=== PATIENT | female | born 1940 | race Caucasian/White ===

== ENCOUNTER 2016-12-05 14:08 | Inpatient (IN) ==
--- NOTE | 2016-12-04 21:56 | Discharge Summary ---
<SrinathElisha hilarioEsme L - Last Filed: 12/04/16 21:54> Date of Encounter: 12/04/16 - Discharge Diagnosis (1) Arthritis of right hip Priority: Primary Status: Acute (2) CAD (coronary artery disease) Priority: Secondary Status: Chronic Qualifiers: Coronary Disease-Associated Artery/Lesion type: unspecified vessel or lesion type [place] vs. transplanted heart: unspecified whether [place] or transplanted heart Associated angina: angina presence unspecified Qualified Code(s): I25.10 - Atherosclerotic heart disease of [place] coronary artery without angina pectoris (3) History of CVA (cerebrovascular accident) Priority: Secondary Status: Chronic (4) History of non-ST elevation myocardial infarction (NSTEMI) Priority: Secondary Status: Chronic (5) Hyperlipidemia Priority: Secondary Status: Chronic Qualifiers: Hyperlipidemia type: unspecified Qualified Code(s): E78.5 - Hyperlipidemia , unspecified (6) Hypertension Priority: Secondary Status: Chronic Qualifiers: Hypertension type: essential hypertension Qualified Code(s): I10 - Essential (primary) hypertension - Discharge Medications Home Medications: Nitroglycerin [Nitrolingual] 400 mcg SL ONCE PRN #0 06/19/15 [History] Allopurinol [Zyloprim] 100 mg PO DAILY 08/12/15 [History] Atorvastatin Calcium [Lipitor] 40 mg PO DAILY 08/12/15 [History] Calcium Carbonate/Vitamin D3 [Calcium 600 + D Tablet] 2 each PO BID 08/12/15 [ History] Magnesium Oxide [Magnesium] 400 mg PO BID 08/12/15 [History] Raloxifene [Evista] 60 mg PO DAILY 08/12/15 [History] Vitamin E (Dl,Tocopheryl Acet) [Vitamin E] 400 unit PO DAILY 08/12/15 [History] Apixaban [Eliquis] 2.5 mg PO BID 04/12/16 [History] Metformin [Glucophage] 500 mg PO BIDWM 04/12/16 [History] Pantoprazole Sodium [Protonix] 40 mg PO DAILY 04/12/16 [History] Levothyroxine [Synthroid] 75 mcg PO DAILY #0 04/14/16 [Rx] Aspirin Enteric Coated [Aspirin EC] 325 mg PO DAILY #21 tablet 12/04/16 [Rx] OxyCODONE Immed Rel [Roxicodone 5 MG] 5 - 10 mg PO Q6HR PRN #40 tablet 12/04/16 [Rx] Losartan Potassium [Cozaar] 100 mg PO DAILY 12/05/16 [History] Metoprolol Succinate 100 mg PO DAILY 12/05/16 [History] Multivitamin [One Daily Essential] 1 each PO DAILY 12/05/16 [History] Tramadol HCl [Ultram] 50 mg PO QID PRN 12/05/16 [History] Allergies/Adverse Reactions: Allergies Penicillins Allergy (Verified 12/05/16 15:01) Hives sulfamethoxazole [From Bactrim] Allergy (Verified 12/05/16 15:01) Hives trimethoprim [From Bactrim] Allergy (Verified 12/05/16 15:01) Hives aspirin Adverse Reaction (Verified 12/05/16 15:01) Palpitations Primary care physician: Miguel Martinez DO - Patient Status Disposition: Transfer Inpatient Rehab Fac Condition: Good - Discharge Instructions Follow Up With: Jairo Richardson MD [Partnered Physician] - 01/03/17 8:35 am Esme Menon PAC [Physician [facility]] - 12/15/16 10:45 am Miguel Martinez DO [Primary Care Provider] - - Hospital Course Hospital course: Ms. Thorpe is a 76 year old female - Time Spent with Patient Total time spent providing and/or coordinating discharge services: <Jairo Richardson - Last Filed: 12/07/16 08:36> Date of Encounter: 12/07/16 Time of Encounter: 08:35 - Discharge Diagnosis (1) Arthritis of right hip Priority: Primary Status: Acute (2) CAD (coronary artery disease) Priority: Secondary Status: Chronic Qualifiers: Coronary Disease-Associated Artery/Lesion type: unspecified vessel or lesion type [place] vs. transplanted heart: unspecified whether [place] or transplanted heart Associated angina: angina presence unspecified Qualified Code(s): I25.10 - Atherosclerotic heart disease of [place] coronary artery without angina pectoris (3) History of CVA (cerebrovascular accident) Priority: Secondary Status: Chronic (4) History of non-ST elevation myocardial infarction (NSTEMI) Priority: Secondary Status: Chronic (5) Azotemia Priority: Secondary Status: Chronic (6) Diverticulitis Priority: Secondary Status: Chronic Qualifiers: Diverticulitis site: large intestine Diverticulitis bleeding: without bleeding Diverticulitis complication: without perforation or abscess Qualified Code(s): K57.32 - Diverticulitis of large intestine without perforation or abscess without bleeding (7) Hyperlipidemia Priority: Secondary Status: Chronic Qualifiers: Hyperlipidemia type: unspecified Qualified Code(s): E78.5 - Hyperlipidemia , unspecified (8) Hypertension Priority: Secondary Status: Chronic Qualifiers: Hypertension type: essential hypertension Qualified Code(s): I10 - Essential (primary) hypertension (9) Hypothyroidism Priority: Secondary Status: Chronic Qualifiers: Hypothyroidism type: unspecified Qualified Code(s): E03.9 - Hypothyroidism , unspecified (10) Acute blood loss anemia Priority: Primary Status: Acute Primary care physician: Miguel Martinez DO - Patient Status Functional capacity at discharge: uses cane/walker Overall status at discharge: patient is progressing back to baseline - Hospital Course Hospital course: Ms. Thorpe is a 76 year old female Patient seen by hospitalist for chest pain determined to be GI related. The The patient uneventful postoperative course antibiotics physical therapy aspirin for DVT prophylaxis - Time Spent with Patient Total time spent providing and/or coordinating discharge services:
[2016-12-05] MEDS ORDERED: Ringers Solution, Lactated 1,000 ML IVC SCH (15:00)
[2016-12-05] MEDS ORDERED: CeFAZolin Pre 2,000 MG/100 ML 2,000 MG/100 ML BAG IVPB ONE (15:00)
--- NOTE | 2016-12-05 15:12 | History & Physical Report ---
Date of Encounter: 12/05/16 Time of Encounter: 15:12 24 Hour HP Update - Instructions Instructions: If the History and Physical is less than 30 days old and was completed prior to A.M. admission and or procedure and has NOT been updated on calendar day of procedure please complete this update prior to performing procedure. - Update Patient reports changes in Medical Condition: No Changes in assessment/condition: No Changes in Medication: No Preop tests/diagnostics Reviewed: Yes Surgery Remains Indicated: Yes Consent for Planned Operative Procedure(s) Verified: Yes - Pre-Operative Checklist Preoperative Checklist Indicated: No Prophylactic Antibiotic Ordered: Yes Is VTE Prophylaxis Indicated?: Yes
--- NOTE | 2016-12-05 16:11 | Anesthesia Evaluation PreOp ---
Date of Encounter: 12/05/16 Time of Encounter: 16:09 - Past History Planned Operation: r prince Cardiac History: [place] (NSTEMI), Angina, HTN, Hyperlipidemia, Other (lhc 12/29, mild 2v cad, ef 55. echo 12/29, nl rv) Pulmonary History: LEANNA Dx [employer] History: TIA (4 years ago, difficulty speech <1 hr), Other (glaucoma) Other Medical History: Renal (stones), Diabetes Type II, Thyroid, GERD Anesthesia History: No Prior Anesthetic Complications, Past Anesthesia (bilat tsr, r tka, l ankle, thyroid, btl, d&c, lap appy, annette) Alcohol Use: none Drug use: none Medications and Allergies Nitroglycerin [Nitrolingual] 400 mcg SL ONCE PRN #0 06/19/15 [History] Allopurinol [Zyloprim] 100 mg PO DAILY 08/12/15 [History] Atorvastatin Calcium [Lipitor] 40 mg PO DAILY 08/12/15 [History] Calcium Carbonate/Vitamin D3 [Calcium 600 + D Tablet] 1 each PO BID 08/12/15 [ History] Magnesium Oxide [Magnesium] 400 mg PO BID 08/12/15 [History] Raloxifene [Evista] 60 mg PO DAILY 08/12/15 [History] Vitamin E (Dl,Tocopheryl Acet) [Vitamin E] 400 unit PO DAILY 08/12/15 [History] Apixaban [Eliquis] 2.5 mg PO DAILY 04/12/16 [History] Metformin [Glucophage] 500 mg PO BIDWM 04/12/16 [History] Pantoprazole Sodium [Protonix] 40 mg PO DAILY 04/12/16 [History] Levothyroxine [Synthroid] 75 mcg PO DAILY #0 04/14/16 [Rx] Aspirin Enteric Coated [Aspirin EC] 325 mg PO DAILY #21 tablet. 12/04/16 [Rx] OxyCODONE Immed Rel [Roxicodone 5 MG] 5 - 10 mg PO Q6HR PRN #40 tablet 12/04/16 [Rx] Losartan Potassium [Cozaar] 100 mg PO DAILY 12/05/16 [History] Metoprolol Succinate 100 mg PO DAILY 12/05/16 [History] Multivitamin [One Daily Essential] 1 each PO DAILY 12/05/16 [History] Tramadol HCl [Ultram] 50 mg PO QID PRN 12/05/16 [History] Allergies Penicillins Allergy (Verified 12/05/16 15:01) Hives sulfamethoxazole [From Bactrim] Allergy (Verified 12/05/16 15:01) Hives trimethoprim [From Bactrim] Allergy (Verified 12/05/16 15:01) Hives aspirin Adverse Reaction (Verified 12/05/16 15:01) Palpitations - Meds/Allergy Pre-op Review Medications Reviewed: Yes Allergies Reviewed: Yes Beta Blockers on Current Med List: Yes If Beta Blockers taken, Date/Time (Last Dose taken): metoprolol at 0700 Anesthesia Results - Labs Laboratory Tests 11/24/16 11/24/16 11/24/16 13:55 13:55 13:55 Hgb 14.3 Hct 42.7 Plt Count 206 PT 14.0 H INR 1.3 APTT 32.5 Sodium 140 Potassium Creatinine 0.87 11/28/16 10:32 Hgb Hct Plt Count PT INR APTT Sodium Potassium 4.5 Creatinine - Imaging EKG: report reviewed (sb first deg avb, lafb) Anesthesia Exam O2 Sat Height 1.52 m Height 1.52 m Weight 80.286 kg Weight 80.286 kg O2 Sat by Pulse Oximetry 93 Vital Signs Temp Pulse Resp BP Pulse Ox 97.2 F L 50 16 152/90 93 L 12/05/16 15:06 12/05/16 15:06 12/05/16 15:06 12/05/16 15:06 12/05/16 15:06 Blood glucose: 116 Height: 1.52 Weight: 80 NPO (# of Hours): >8 - HEENT Pupil (Motor): Pupils equal, EOMI Mallampati: I Teeth: Edentulous Oral Opening: Greater than 3 - [employer] LOC: Oriented [employer] Motor: Normal RUE, Normal LUE, Normal RLE, Normal LLE, Normal Face [employer] Sensory: Normal: RUE, LUE, RLE, LLE, Face - Cardiac Rhythm: Regular Murmur: None - Pulmonary Breath Sounds: bilateral Clear Respiratory Effort: Symmetrical Anesthesia Assess/Plan ASA Score: 3 Modified North Scale for Level of Consciousness: Cooperative, oriented, and tranquil Anesthetic Plan: General Monitoring Plan: Standard Monitors Recovery Plan: PACU
[2016-12-05] MEDS ORDERED: *HR* Rocuronium Bromide 50 MG/5 ML VIAL ONE ×2 (16:22)
[2016-12-05] MEDS ORDERED: *HR* Propofol 200 MG/20 ML VIAL IVP ONE ×2 (16:22→17:04)
[2016-12-05] MEDS ORDERED: *HR* FentaNYL (PF) 100 MCG/2 ML VIAL ONE ×3 (16:22→17:39)
[2016-12-05] MEDS ORDERED: Ondansetron 4 MG/2 ML VIAL ONE ×2 (16:22→17:02)
[2016-12-05] MEDS ORDERED: *HR* Labetalol 20 MG/4 ML SYRINGE IVP ONE (16:35)
[2016-12-05] MEDS ORDERED: Dexamethasone 4 MG/ML VIAL ONE (17:02)
[2016-12-05] MEDS ORDERED: Lidocaine -MPF 2% 2 ML VIAL ONE (17:03)
--- NOTE | 2016-12-05 17:56 | Orthopedic Operative Note ---
Date of procedure: 12/05/16 Pre-op diagnosis: Right hip arthritis Post-op diagnosis: same Procedure: Procedure: Right Total Hip Replacment Estimated blood loss: 200 cc Hardware: Biomet DM Cup: 50 G7 fin cup Femoral size 11 echo full profile lateralized stem Head: +0 head with [place] Procedural Notes: Grade 4 arthritis femoral head acetabular socket Operative procedure: The patient was brought to the operating room and placed on the operating room table. After general anesthesia was administered the patient was placed in the lateral decubitus position with the operative leg up. All pressure points were padded appropriately and the head was stabilized in the neutral position. The operative extremity was prepped and draped in the sterile surgical fashion patient received IV antibiotic prior to skin incision. A standard posterior approach is made to the operative hip, the incision was made through the skin and subcutaneous tissue hemostasis was obtained with Bovie cautery. Using careful sharp dissection the fascia was identified and incised exposing the external rotators. The external rotators were released off the greater trochanter and tagged with #2 FiberWire suture. The capsule was T'd open and the hip was brought into internal rotation. Patient noted to have grade 4 arthritic changes femoral head. The femoral neck cut was made at the appropriate level. An anterior capsulotomy was performed for the anterior retractor. Soft tissues removed from the acetabulum. Patient noted to have grade 4 arthritic changes acetabulum. Acetabulum was first reamed medially, and then reamed in 15 degrees of anteversion and 45 degrees off the horizontal. It was reamed up to the appropriate size 50 The appropriate-sized 50 acetabular cup was impacted in place in 15 degrees of anteversion and 45 degrees off the horizontal. This had good fit and fixation. The hip was brought back in to internal rotation and prepared with the juke box servicer followed by the canal finder followed by broaching process in 20 degrees anteversion. It was broached up to the appropriate size 11 The femoral implant was impacted in place in 20 degrees of anteversion. Trial reduction found the hip to be stable with the +0 head and [place]. The trials were removed and the real implants were impacted in place. The hip was reduced, patient had apparent equal leg lengths. The hip had excellent stability with forward flexion to 90 degrees adduction of 30 degrees and internal rotation of 60 degrees. The hip had no shuck. The hips after 2 minutes with a Betadine saline solution. It was irrigated out with 2 L of pulse irrigation. The external rotators were reattached to drill holes in the greater trochanter. Fascia was closed with a running #2 PDS suture. The deep tissue was irrigated and closed deep with #1 PDS suture superficially with 0 PDS suture and skin was closed with skin lenny. The patient was placed in a sterile dressing and abduction pillow. The patient was extubated and transferred to the recovery room in stable condition. Anesthesia: GETA Surgeon: Jairo Richardson Software Programmer: Esme Menon Condition: stable Disposition: PACU
[2016-12-05] MEDS ORDERED: *HR* Enoxaparin 30 MG/0.3 ML SYRINGE SQ SCH (18:00)
[2016-12-05] MEDS: *HR* HYDROmorphone (PF) 1 MG/ML SYRINGE IVP PRN ×6 (18:21→18:50)
[2016-12-05 18:41] LABS: Hematocrit 38.3 % (35.3-44.9); Hemoglobin 12.9 g/dL (11.5-15.4)
[2016-12-05] MEDS ORDERED: Ketorolac 30 MG/ML VIAL IVP ONE (18:46)
[2016-12-05] MEDS ORDERED: Acetaminophen IV 1,000 MG/100 ML INFUS..BTL IVPB ONE (18:46)
[2016-12-05] MEDS ORDERED: Acetaminophen IV 1,000 MG/100 ML INFUS..BTL ONE (18:47)
--- NOTE | 2016-12-05 19:19 | Anesthesia Evaluation Post Op ---
Date of Encounter: 12/05/16 Time of Encounter: 19:19 - Vital Signs Vital Signs: Vital Signs/O2 Sat, Most Current Temp Pulse Resp BP Pulse Ox 97.8 F 60 12 104/61 96 12/05/16 19:15 12/05/16 19:15 12/05/16 19:15 12/05/16 19:15 12/05/16 19:15 - Lungs Lungs: Clear Ascult./Percussion - Airway Airway: Non-obstructed - Cardiovascular Regular Rate - Mental Status Mental Status: Alert & Oriented, Answers Appropriately - Pain Pain Scale: 3 Pain Scale used: Numeric (1 - 10) - Nausea Vomiting Nausea Vomiting: Not Present - Hydration Hydration: Ice chips, Has not voided - Discharge PostOp Status: Transfer Patient to floor
[2016-12-05] MEDS ORDERED: traMADol 50 MG TABLET PO PRN (19:58)
[2016-12-05] MEDS ORDERED: Naloxone 0.4 MG/ML INJ IVP PRN (19:58)
[2016-12-05] MEDS ORDERED: Clindamycin 900 MG/50 ML 900 MG/50 ML IV.SOLN IVPB SCH (19:58)
[2016-12-05] MEDS ORDERED: Temazepam 15 MG CAPSULE PO PRN (19:58)
[2016-12-05] MEDS ORDERED: Ondansetron 4 MG/2 ML VIAL IVP PRN (19:58)
[2016-12-05] MEDS ORDERED: Nitroglycerin Spray 4.9 GM BOTTLE SL PRN (19:58)
[2016-12-05] MEDS ORDERED: Acetaminophen 325 MG TABLET PO PRN (19:58)
[2016-12-05] MEDS ORDERED: Sennosides 8.6 MG TABLET PO PRN (19:58)
[2016-12-05] MEDS ORDERED: MOM Conc 10 ML UD.LIQ PO PRN (19:58)
[2016-12-05] MEDS: Magnesium Oxide 400 MG TABLET PO SCH (21:39)
[2016-12-05] MEDS: APIXABAN 2.5 MG TABLET PO SCH (21:39)
[2016-12-05] MEDS: Ascorbic Acid 500 MG TABLET PO SCH (21:39)
[2016-12-05] MEDS: (Calcium Carbonate/Vitamin D3 [Calcium 600 + D Tablet PO SCH (21:40)
[2016-12-05] MEDS: *HR* OxyCODONE Immed Rel 5 MG TABLET PO PRN (21:40)
[2016-12-05] MEDS: *HR* Metformin 500 MG TABLET PO SCH (21:46)
[2016-12-05] MEDS ORDERED: Dextrose Gel 15 GM PO PRN ×2 (21:56)
[2016-12-05] MEDS ORDERED: *HR* Dextrose 50 % in Water (Syg) 50 ML SYRINGE IVP PRN (21:56)
[2016-12-05] MEDS ORDERED: D5% in Water 1,000 ML IV PRN (21:56)
[2016-12-05] MEDS: Insulin LISPRO 300 UNITS/3 ML VIAL SQ SCH (22:36)
[2016-12-05] MEDS: Ringers Solution, Lactated 1,000 ML IVC SCH (23:46)
[2016-12-06] MEDS: Clindamycin 900 MG/50 ML 900 MG/50 ML IV.SOLN IVPB SCH ×2 (01:07→13:02)
[2016-12-06] MEDS: *HR* OxyCODONE Immed Rel 5 MG TABLET PO PRN ×3 (03:22→20:46)
[2016-12-06] MEDS: *HR* HYDROmorphone (PF) 1 MG/ML SYRINGE IVP PRN (05:34)
[2016-12-06] MEDS ORDERED: *HR* Enoxaparin 30 MG/0.3 ML SYRINGE SQ SCH (06:00)
--- NOTE | 2016-12-06 06:47 | Orthopedics Progress Note ---
Date of Encounter: 12/06/16 Time of Encounter: 06:46 - Assessment and Plan (1) Arthritis of right hip Current Visit: Yes Status: Acute (2) CAD (coronary artery disease) Current Visit: Yes Status: Chronic Qualifiers: Coronary Disease-Associated Artery/Lesion type: unspecified vessel or lesion type [place] vs. transplanted heart: unspecified whether [place] or transplanted heart Associated angina: angina presence unspecified Qualified Code(s): I25.10 - Atherosclerotic heart disease of [place] coronary artery without angina pectoris (3) History of CVA (cerebrovascular accident) Current Visit: Yes Status: Chronic (4) History of non-ST elevation myocardial infarction (NSTEMI) Current Visit: Yes Status: Chronic (5) Azotemia Current Visit: No Status: Chronic (6) Diverticulitis Current Visit: No Status: Chronic Qualifiers: Diverticulitis site: large intestine Diverticulitis bleeding: without bleeding Diverticulitis complication: without perforation or abscess Qualified Code(s): K57.32 - Diverticulitis of large intestine without perforation or abscess without bleeding (7) Hyperlipidemia Current Visit: No Status: Chronic Qualifiers: Hyperlipidemia type: unspecified Qualified Code(s): E78.5 - Hyperlipidemia , unspecified (8) Hypertension Current Visit: No Status: Chronic Qualifiers: Hypertension type: essential hypertension Qualified Code(s): I10 - Essential (primary) hypertension (9) Hypothyroidism Current Visit: No Status: Chronic Qualifiers: Hypothyroidism type: unspecified Qualified Code(s): E03.9 - Hypothyroidism , unspecified Subjective Interval history: Patient was seen this morning doing well without complaints. Afebrile vital signs stable. Operative extremity: Neurovascularly intact Dressing clean dry and intact Calves nontender Assessment and plan: Continue with postoperative care hematocrit 38 Objective Vital signs: Vital Signs Temp Pulse Resp BP Pulse Ox 12/06/16 06:21 97.9 F 60 18 88/60 93 L 12/06/16 05:30 101/60 12/06/16 03:10 97.7 F 63 17 95/61 93 L 12/05/16 23:40 97.7 F 63 14 97/67 94 L 12/05/16 22:41 97.8 F 71 15 93/62 96 12/05/16 21:35 97.4 F L 66 14 90/58 94 L 12/05/16 20:39 98 F 62 16 80/40 95 02/20/17 20:07 98.4 F 59 16 87/61 96 12/05/16 19:15 97.8 F 60 12 104/61 96 12/05/16 19:05 68 10 111/72 97 12/05/16 18:55 66 12 98/69 94 L 12/05/16 18:45 97.7 F 67 16 144/99 97 12/05/16 18:35 70 16 133/73 96 12/05/16 18:25 68 16 124/76 100 12/05/16 18:15 97 F L 66 16 156/99 98 12/05/16 15:06 97.2 F L 50 16 152/90 93 L Intake and Output 12/05/16 12/05/16 12/06/16 15:59 23:59 07:59 Intake Total 200 / 200 Output Total 200 / 200 Balance 0 / 0 Intake: IV Fluids 200 / 200 Ofirmev 1,000 mg In 100 100 / 100 ml @ 400 mls/hr IVPB ONCE ONE Rx#:[id number] Ancef Premix 2,000 MG/100 100 / 100 ML 2,000 mg In 100 ml @ 200 mls/hr IVPB PREOP ONE Rx#:[id number] Output: Estimated Blood Loss 200 / 200 Other: # Voids 1 Weight 80.286 kg 77.564 kg Blood Glucose* 285 - Labs CBC & BMP: 12/05/16 18:28 Labs: Abnormal lab results POC Glucose 116 (58-89) H 12/05/16 14:51 - VTE Documentation of Mechanical Device: Venous foot pump, device Consult Discharge Plan - Plan Referrals: Miguel Martinez DO [Primary Care Provider] -
[2016-12-06 07:13] LABS: Calcium 8.2 mg/dL (8.6-10.8); Hematocrit 35.7 % (35.3-44.9); Hemoglobin 11.6 g/dL (11.5-15.4); Potassium 5.6 mEq/L (3.5-4.5)
[2016-12-06] MEDS ORDERED: Multivit/Ca/Min/Fe/FA 1 TAB TABLET PO SCH (09:00)
[2016-12-06] MEDS ORDERED: APIXABAN 2.5 MG TABLET PO SCH (09:00)
[2016-12-06] MEDS: *HR* Metformin 500 MG TABLET PO SCH ×2 (09:44→17:25)
[2016-12-06] MEDS: Metoprolol XL (24 HR) Succ 50 MG TAB.ER.24H PO SCH (09:44)
[2016-12-06] MEDS: Ascorbic Acid 500 MG TABLET PO SCH ×2 (09:45→17:25)
[2016-12-06] MEDS: Insulin LISPRO 300 UNITS/3 ML VIAL SQ SCH ×4 (09:45→20:47)
[2016-12-06] MEDS: APIXABAN 2.5 MG TABLET PO SCH ×2 (09:45→20:46)
[2016-12-06] MEDS: (Calcium Carbonate/Vitamin D3 [Calcium 600 + D Tablet PO SCH ×2 (09:46→20:46)
[2016-12-06] MEDS: Multivit/Ca/Min/Fe/FA 1 TAB TABLET PO SCH (09:46)
[2016-12-06] MEDS: Magnesium Oxide 400 MG TABLET PO SCH ×2 (09:46→20:46)
[2016-12-07] MEDS ORDERED: Simethicone 80 MG TAB.CHEW PO ONE (02:21)
--- NOTE | 2016-12-07 02:51 | Internal Medicine Consult Note ---
<Ingris Nunez - Last Filed: 12/07/16 05:13> Date of Encounter: 12/07/16 Time of Encounter: 02:50 - Assessment and Plan (1) Chest pain Current Visit: Yes Status: Acute Assessment and plan: Patient with new left sided chest pain. Pain is worse with movement, no change with inspiration. Patient states that the last time she had pain like this it was gas pains. Palpation of left chest recreates the pain. EKG showed bigeminey. Believe that this is not likely to be cardiac in nature. Will do cardiac rule out with troponins x3. Will also recheck electrolytes as patient had elevated potassium this morning. Patient had some Gas-X to see if that helps. Patient is post-op from hip replacement so PE is always a consideration however patient has not had any increase in O2 requirement, tachypnea or tachycardia and the patient has been on elliquis and lovenox for DVT prophylaxis making a PE much less likely. Will do a CXR to evaluate for any abnormalities. 1. Troponins x 3 2. Check electrolytes including Mg, Phos and Calcium. 3. CXR 4. Will also check lipase 5. Continue elliquis and lovenox Qualifiers: Chest pain type: unspecified Qualified Code(s): R07.9 - Chest pain, unspecified (2) Acute kidney injury Current Visit: Yes Status: Acute Assessment and plan: Patient with acute kidney injury. Will recheck creatinine and GFR. Will also stop metformin because of the kidney injury. 1. Recheck creatinine and GFR 2. Stop Metformin (3) Hyperkalemia Current Visit: Yes Status: Acute Assessment and plan: Patient with hyperkalemia this morning, given kaexalate. Will recheck potassium. 1. Recheck potassium. (4) DVT prophylaxis Current Visit: Yes Status: Acute Assessment and plan: Patient on eliquis and lovenox. Internal Medicine - CN: HPI - Data of Consult Consult date: 12/07/16 Requesting Physician: Jairo Richardson MD - Consult Narrative Reason for consult: Chest pain History of present illness: Ms. Thorpe is a 76 year old female with PMH of CVA, NSTEMI, diverticulitis, HLD , HTN, hypothyroidism, and diabetes who is now 2 days post total hip replacement (02/20/17). Internal medicine was consulted because patient began complaining of left chest pain. Patient reports that earlier this evening she developed left sided chest pain the radiates across her chest. The pain is constant with sharp shooting pains radiating across her chest and up to her neck. It does not radiate down her left arm. Pain is a 10/10 at this time. Pain is worse with movement, no change with inspiration. Patient states that the last time she had pain like this it was gas pains. She states that this does not feel like the time she had a heart attack. Patient reports, hiccups, a headache that is no worse than normal and SOB that is baseline for her. Denies changes in vision, nausea/vomiting, abdominal pain, changes in bowel or bladder. Today, temperature max has been 99.6, HR in the60s, RR 16-18, wiith blood pressure 80s-100/50s-60s. Oxygen saturation has been 95% on 2L. Labs this morning showed a potassium of 5.6 and the patient was given Kayexalate. Creatinine 1. 27 with GFR of 41. EKG shows bigeminy PVCs On exam, patient is awake and alert, answers questions appropriately. Lungs are clear to auscultation bilaterally. Palpation of left chest recreates the pain. Abdomen soft, non-tender. No calf tenderness, erythema or swelling. Past Med Surg Social Fam HX - Past Medical History Medical history: arthritis, CVA, diabetes, GERD, glaucoma, hyperlipidemia, hypertension, migraine, osteoporosis, other Psychiatric history: no psych history - Past Surgical History Surgical History: appendectomy, hysterectomy, knee replacement, orthopedic, other, SONIA/BSO, thyroidectomy, other - Social History Smoking Status: Former smoker Smokeless Tobacco Status: No Alcohol use: none Drug use: none - Family History Mother Age: 73 Living Status: Hx Family Cardiac Disorders: Yes Hx Family Cancer: Yes Father Living Status: Age at : 68 Hx Family Respiratory Disorders: Yes (copd) Hx Family Cancer: Yes Daughter Adopted: No Living Status: Still Living Hx Family Cardiac Disorders: Yes (aortic aneurysm (daughter), Heart disease) Hx Family Respiratory Disorders: No Hx Family Cancer: Yes (Uterine & bladder (patients mother), Pancreatic (pt.dad) , Uterine (Sisters)) Hx Family GI Disorders: Yes ([place]) Hx Family Endocrine Disorder: Yes Hx Family Neuromuscular Disorders: No Hx Family Neurologic Disorders: No Hx Family HEENT Disorders: No Hx Family Autoimmune Disorders: Yes (RA (patients father)) - Constitutional Constitutional: no chills, no fever(s) - EENT Eyes: no change in vision - Cardiovascular Cardiovascular ROS IM: chest pain, no dyspnea, no irregular heart rhythm, no syncope - Respiratory Respiratory: no cough, no dyspnea, no wheezing, no chest congestion - Gastrointestinal Gastrointestinal: no abdominal pain, no constipation, no diarrhea, no nausea, no vomiting - Genitourinary Genitourinary: no change in urinary stream - Neurological Neurological ROS: no confusion Internal Medicine - CN: Meds Nitroglycerin [Nitrolingual] 400 mcg SL ONCE PRN #0 06/19/15 [History] Allopurinol [Zyloprim] 100 mg PO DAILY 08/12/15 [History] Atorvastatin Calcium [Lipitor] 40 mg PO DAILY 08/12/15 [History] Calcium Carbonate/Vitamin D3 [Calcium 600 + D Tablet] 2 each PO BID 08/12/15 [ History] Magnesium Oxide [Magnesium] 400 mg PO BID 08/12/15 [History] Raloxifene [Evista] 60 mg PO DAILY 08/12/15 [History] Vitamin E (Dl,Tocopheryl Acet) [Vitamin E] 400 unit PO DAILY 08/12/15 [History] Apixaban [Eliquis] 2.5 mg PO BID 04/12/16 [History] Metformin [Glucophage] 500 mg PO BIDWM 04/12/16 [History] Pantoprazole Sodium [Protonix] 40 mg PO DAILY 04/12/16 [History] Levothyroxine [Synthroid] 75 mcg PO DAILY #0 04/14/16 [Rx] Aspirin Enteric Coated [Aspirin EC] 325 mg PO DAILY #21 tablet. 12/04/16 [Rx] OxyCODONE Immed Rel [Roxicodone 5 MG] 5 - 10 mg PO Q6HR PRN #40 tablet 12/04/16 [Rx] Losartan Potassium [Cozaar] 100 mg PO DAILY 12/05/16 [History] Metoprolol Succinate 100 mg PO DAILY 12/05/16 [History] Multivitamin [One Daily Essential] 1 each PO DAILY 12/05/16 [History] Tramadol HCl [Ultram] 50 mg PO QID PRN 12/05/16 [History] Allergies Penicillins Allergy (Verified 12/05/16 15:01) Hives sulfamethoxazole [From Bactrim] Allergy (Verified 12/05/16 15:01) Hives trimethoprim [From Bactrim] Allergy (Verified 12/05/16 15:01) Hives aspirin Adverse Reaction (Verified 12/05/16 15:01) Palpitations Internal Medicine - CN: Exam - Constitutional Vitals: Temp Pulse Resp BP Pulse Ox 99.1 F 62 17 97/58 94 L 12/07/16 00:00 12/07/16 00:00 12/07/16 00:00 12/07/16 00:00 12/07/16 00:00 General appearance IM: Present: A&O X 3, pleasant, no acute distress, answers questions appropriately - Head Head exam: Present: atraumatic, normal inspection, normocephalic - Eye Eye exam: Present: EOMI, normal appearance, PERRL - ENT ENT exam: Present: mucous membranes moist - Respiratory Respiratory exam: Present: CTAB. Absent: decreased breath sounds, rhonchi, wheezes - Cardiovascular Additional comments: bigeminey PVC on EKG - GI/Abdominal GI/Abdominal exam IM: Present: soft. Absent: guarding, rebound, rigid, tenderness - Extremities Exam Extremities exam IM: Absent: calf tenderness - Neurological Exam Neurological exam: Present: alert, CN II-XII intact, oriented X3 Internal Medicine - CN: Reslt - Labs CBC & Chem 7: 12/07/16 03:14 12/07/16 03:14 Labs: Short CBC 12/06/16 Range/Units 06:29 Hgb 11.6 (11.5-15.4) g/dL Hct 35.7 (35.3-44.9) % BMP 12/06/16 06:29 Sodium 134 L Potassium 5.6 H Chloride 99 Carbon Dioxide 26 BUN 26 H Creatinine 1.27 H Glucose 157 H Calcium 8.2 L Consult Discharge Plan - Plan Referrals: Jairo Richardson MD [Partnered Physician] - 01/03/17 8:35 am Esme Menon, PAC [Physician Line Out Worker] - 12/15/16 10:45 am Miguel Martinez, DO [Primary Care Provider] - <Joelle Pemberton R - Last Filed: 12/07/16 07:36> Internal Medicine - CN: HPI - Data of Consult Requesting Physician: Jairo Richardson MD - Consult Narrative History of present illness: Ms. Thorpe is a 76 year old female Internal Medicine - CN: Exam - Constitutional Vitals: Temp Pulse Resp BP Pulse Ox 98.2 F 65 20 108/69 94 L 12/07/16 06:29 12/07/16 06:29 12/07/16 06:29 12/07/16 06:29 12/07/16 06:29 Internal Medicine - CN: Reslt - Labs CBC & Chem 7: 12/07/16 03:14 12/07/16 03:14 Labs: Short CBC 12/06/16 12/07/16 Range/Units 06:29 03:14 WBC 9.8 (4.3-11.1) K/mcL Hgb 11.6 9.8 L D (11.5-15.4) g/dL Hct 35.7 29.8 L (35.3-44.9) % Plt Count 182 (140-400) K/mcL Neutrophils # 6.4 (1.6-8.9) K/mcL BMP 12/07/16 03:14 Sodium 137 Potassium 4.4 D Chloride 101 Carbon Dioxide 26 BUN 47 H D Creatinine 2.07 H D Glucose 144 H Calcium 8.1 L Cardiac Enzymes 12/07/16 Range/Units 03:14 Troponin I 0.02 (0-0.03) ng/mL - Impressions Impressions Chest X-Ray 12/07/16 02:33 IMPRESSION: No acute abnormality. D/ / Jack Shirley MD / Jack Shirley MD Interpreting Provider: Jack Shirley MD - Attending Attestation I examined this patient and my medical decision-making was reviewed with the NURSING HOME AIDE/PA/Advanced Practice Nurse/Resident Physician. I agree with the documented findings, disposition and treatment plan as described except to the extent set forth below. Pt reports that she developed pain across the chest last night, after she started having hiccups. No Feels sore across the chest and tender to touch. Also reports some pain in the upper abdomen. Improved now. Apparently had a large BM yesterday. O/E: Not in acute distress. Tenderness across the chest. Abdomen soft, mild tenderness. Bowel sounds present. EKG: Ventricular ectopics / bigeminy. Lipase normal. Creatinine increasing. A/P: Chest pain: Likely non-cardiac. Initial troponin negative. Monitor. Acute kidney injury: On IV normal saline. US scan of kidneys; UA / culture; bladder scan. Repeat BMP at about 9 AM If creatinine is not improving / worsening need nephrology consult. Hiccups: consider Compazine PRN, if the pt remains symptomatic. We thank Dr Richardson for the consult. We will follow the pt during her stay. Please do not hesitate to contact us if you have any questions
[2016-12-07] MEDS: *HR* OxyCODONE Immed Rel 5 MG TABLET PO PRN ×3 (03:01→19:29)
[2016-12-07 03:23] LABS: Basophils % 0.4 %; Eosinophils # 0.1 K/mcL (0.0-0.6); Eosinophils % 1.4 %; Hematocrit 29.8 % (35.3-44.9); Immature Granulocytes % 0.2 % (0-4); Immature Platelets 2.9 % (1.1-6.1); Lymphocytes # 2.2 K/mcL (0.6-4.6); Lymphocytes % 21.9 %; Mean Corpuscular HGB Conc 32.9 g/dL (31.6-35.5); Mean Corpuscular Hemoglobin 31.3 pg (28.0-33.3); Mean Corpuscular Volume 95.2 fL (83.0-100.0); Mean Platelet Volume 9.9 fL (9.4-12.4); Monocytes % 10.6 %; Neutrophils # 6.4 K/mcL (1.6-8.9); Platelet Count 182 K/mcL (140-400); Red Blood Count 3.13 M/mcL (3.82-4.97); Red Cell Distribution Width 13.7 % (11.5-14.5); Segmented Neutrophils % 65.5 %
[2016-12-07 03:37] LABS: Calcium 8.1 mg/dL (8.6-10.8); Magnesium 1.4 mg/dL (1.6-2.6); Phosphorous 6.4 mg/dL (2.3-4.7); Potassium 4.4 mEq/L (3.5-4.5)
[2016-12-07 03:45] LABS: Hemoglobin 9.8 g/dL (11.5-15.4)
[2016-12-07] MEDS: *HR* HYDROmorphone (PF) 1 MG/ML SYRINGE IVP PRN (04:00)
[2016-12-07] MEDS: Ringers Solution, Lactated 1,000 ML IVC SCH (04:01)
[2016-12-07] MEDS ORDERED: 0.9 % Sodium Chloride 1,000 ML IVC SCH (04:30)
[2016-12-07] MEDS: APIXABAN 2.5 MG TABLET PO SCH ×2 (07:42→20:23)
[2016-12-07] MEDS: Magnesium Oxide 400 MG TABLET PO SCH ×2 (07:43→20:23)
[2016-12-07] MEDS: Ascorbic Acid 500 MG TABLET PO SCH ×2 (07:44→17:37)
[2016-12-07] MEDS: Metoprolol XL (24 HR) Succ 50 MG TAB.ER.24H PO SCH (07:44)
[2016-12-07] MEDS: Multivit/Ca/Min/Fe/FA 1 TAB TABLET PO SCH (07:44)
[2016-12-07] MEDS: Insulin LISPRO 300 UNITS/3 ML VIAL SQ SCH ×4 (07:45→20:33)
[2016-12-07] MEDS: (Calcium Carbonate/Vitamin D3 [Calcium 600 + D Tablet PO SCH ×2 (07:45→20:16)
--- NOTE | 2016-12-07 08:37 | Orthopedics Progress Note ---
Date of Encounter: 12/07/16 Time of Encounter: 08:36 - Assessment and Plan (1) Arthritis of right hip Current Visit: Yes Status: Acute (2) CAD (coronary artery disease) Current Visit: Yes Status: Chronic Qualifiers: Coronary Disease-Associated Artery/Lesion type: unspecified vessel or lesion type [place] vs. transplanted heart: unspecified whether [place] or transplanted heart Associated angina: angina presence unspecified Qualified Code(s): I25.10 - Atherosclerotic heart disease of [place] coronary artery without angina pectoris (3) History of CVA (cerebrovascular accident) Current Visit: Yes Status: Chronic (4) History of non-ST elevation myocardial infarction (NSTEMI) Current Visit: Yes Status: Chronic (5) Azotemia Current Visit: No Status: Chronic (6) Diverticulitis Current Visit: No Status: Chronic Qualifiers: Diverticulitis site: large intestine Diverticulitis bleeding: without bleeding Diverticulitis complication: without perforation or abscess Qualified Code(s): K57.32 - Diverticulitis of large intestine without perforation or abscess without bleeding (7) Hyperlipidemia Current Visit: No Status: Chronic Qualifiers: Hyperlipidemia type: unspecified Qualified Code(s): E78.5 - Hyperlipidemia , unspecified (8) Hypertension Current Visit: No Status: Chronic Qualifiers: Hypertension type: essential hypertension Qualified Code(s): I10 - Essential (primary) hypertension (9) Hypothyroidism Current Visit: No Status: Chronic Qualifiers: Hypothyroidism type: unspecified Qualified Code(s): E03.9 - Hypothyroidism , unspecified (10) Acute blood loss anemia Current Visit: Yes Status: Acute Subjective Interval history: Patient was seen this morning doing well without complaints. Afebrile vital signs stable. Operative extremity: Neurovascularly intact Dressing clean dry and intact Calves nontender Assessment and plan: Continue with postoperative care hematocrit 29, elevation of creatinine will bolus recheck Objective Vital signs: Vital Signs Temp Pulse Resp BP Pulse Ox 12/07/16 06:29 98.2 F 65 20 108/69 94 L 12/07/16 04:12 98.7 F 65 15 108/56 94 L 12/07/16 00:00 99.1 F 62 17 97/58 94 L 12/06/16 20:30 99.6 F 69 17 94/50 93 L 12/06/16 14:00 98.1 F 65 18 104/64 93 L 12/06/16 11:05 97.9 F 62 16 87/45 93 L Intake and Output 12/06/16 12/07/16 12/07/16 23:59 07:59 15:59 Intake Total 540 / 540 300 / 300 Output Total 275 / 275 500 / 500 Balance 265 / 265 -200 / -200 Intake: Oral 540 / 540 300 / 300 Output: Urine 275 / 275 500 / 500 Other: Meal Dinner Percent of Meal Consumed 10% Stool Size Moderate Stool Consistency loose Stool Characteristics Normal for Patient Stool Color Brown # Bowel Movements 1 Blood Glucose* 226 158 - Labs CBC & BMP: 12/07/16 03:14 12/07/16 03:14 Labs: Abnormal lab results RBC 3.13 M/mcL (3.82-4.97) L 12/07/16 03:14 Hgb 9.8 g/dL (11.5-15.4) L D 12/07/16 03:14 Hct 29.8 % (35.3-44.9) L 12/07/16 03:14 BUN 47 mg/dL (7-20) H D 12/07/16 03:14 Creatinine 2.07 mg/dL (0.57-1.11) H D 12/07/16 03:14 Est GFR ( Amer) 28 (> 60) L 12/07/16 03:14 Est GFR (Non-Af Amer) 23 (> 60) L 12/07/16 03:14 Glucose 144 mg/dL (70-99) H 12/07/16 03:14 POC Glucose 285 (58-89) H 12/05/16 21:49 Calcium 8.1 mg/dL (8.6-10.8) L 12/07/16 03:14 Phosphorus 6.4 mg/dL (2.3-4.7) H 12/07/16 03:14 Magnesium 1.4 mg/dL (1.6-2.6) L 12/07/16 03:14 - VTE Documentation of Mechanical Device: Venous foot pump, device Consult Discharge Plan - Plan Referrals: Jairo Richardson MD [Partnered Physician] - 01/03/17 8:35 am Esme Menon, PAC [Physician Graphic Arts Technician] - 12/15/16 10:45 am Miguel Martinez DO [Primary Care Provider] -
[2016-12-07] MEDS ORDERED: Magnesium Sulfate 2 GM in D5% in Water 100 ML IVPB ONE (08:42)
--- NOTE | 2016-12-07 08:56 | Internal Med Progress Note ---
Date of Encounter: 12/07/16 Time of Encounter: 08:54 - Assessment and plan (1) Gastritis Current Visit: Yes Status: Acute Qualifiers: Chronicity: unspecified Qualified Code(s): K29.70 - Gastritis, unspecified , without bleeding (2) Diarrhea Current Visit: Yes Status: Acute Qualifiers: Diarrhea type: unspecified type Qualified Code(s): R19.7 - Diarrhea, unspecified (3) Acute blood loss anemia Current Visit: Yes Status: Acute (4) Acute kidney failure Current Visit: Yes Status: Acute Qualifiers: Acute renal failure type: unspecified Qualified Code(s): N17.9 - Acute kidney failure, unspecified - Time Spent With Patient Plan Possible upper GI bleeding, check stool for occult blood, close monitoring of H& H, increase Protonix to twice a day, Carafate 1 g 4 times a day, possible C. difficile colitis secondary to clindamycin, will check C. difficile , check stool culture. Acute renal failure secondary to diarrhea and decreased oral intake increased fluid, check bladder scan A typical chest pain possible secondary to gastritis, cardiac enzyme negative, close monitoring Diabetes mellitus uncontrolled, discontinue metformin with her acute renal failure and start insulin sliding scale Right lower extremities tenderness with her acute episode of chest pain will check venous Doppler right lower extremities PTOT Ambulate Greater than 35 minutes - Subjective Interval history: Patient denies any chest pain now, she is complaining of gastroesophageal reflux disease-like symptom associated with diarrhea, shortness of breath is better. Patient is complaining of epigastric discomfort - Constitutional Vitals: Temp Pulse Resp BP Pulse Ox 98.2 F 65 20 108/69 94 L 12/07/16 06:29 12/07/16 06:29 12/07/16 06:29 12/07/16 06:29 12/07/16 06:29 General appearance: Present: A&O X 3, pleasant, no acute distress, answers questions appropriately - Head Head exam: Present: atraumatic, normocephalic - Neck Neck exam general surgery: Present: supple, trachea midline. Absent: lymphadenopathy - Respiratory Respiratory exam: Present: decreased breath sounds, rales (Bilateral lung base) . Absent: accessory muscle use, rhonchi, wheezes - Cardiovascular Cardiovascular exam: Present: RRR, +S1, +S2. Absent: diastolic murmur, gallop, rubs, systolic murmur - GI/Abdominal GI/Abdominal exam: Present: normal bowel sounds, soft, no peritoneal signs. Absent: distended, tenderness - Extremities Exam Extremities exam: Present: calf tenderness (Right lower extremity ), warm, radial pulses palpable and symetrical. Absent: cyanotic, pedal edema - Neurological Exam Neurological exam: Present: CN II-XII intact, oriented X3, no focal deficits. Absent: pronater drift, facial droop, speech deficit - Skin Skin exam: Present: dry, intact Internal Medicine: Result - Labs CBC & Chem 7: 12/07/16 03:14 12/07/16 03:14 Labs: Short CBC 12/07/16 Range/Units 03:14 WBC 9.8 (4.3-11.1) K/mcL Hgb 9.8 L D (11.5-15.4) g/dL Hct 29.8 L (35.3-44.9) % Plt Count 182 (140-400) K/mcL Neutrophils # 6.4 (1.6-8.9) K/mcL BMP 12/07/16 03:14 Sodium 137 Potassium 4.4 D Chloride 101 Carbon Dioxide 26 BUN 47 H D Creatinine 2.07 H D Glucose 144 H Calcium 8.1 L Cardiac Enzymes 12/07/16 Range/Units 03:14 Troponin I 0.02 (0-0.03) ng/mL - Impressions Impressions Chest X-Ray 12/07/16 02:33 IMPRESSION: No acute abnormality. D/ / Jack Shirley MD / Jack Shirley MD Interpreting Provider: Jack Shirley MD - VTE Documentation of Mechanical Device: Venous foot pump, device Consult Discharge Plan - Plan Referrals: Jairo Richardson MD [Partnered Physician] - 01/03/17 8:35 am Esme Menon, PAC [Physician Director Learning Services] - 12/15/16 10:45 am Miguel Martinez, DO [Primary Care Provider] -
[2016-12-07 09:21] LABS: Calcium 8.4 mg/dL (8.6-10.8); Potassium 4.5 mEq/L (3.5-4.5)
[2016-12-07 10:11] LABS: Bilirubin,Urine Negative (Negative); Blood,Urine Negative (Negative); Color,Urine Yellow (Yellow); Glucose,Urine (UA) Normal (Normal); Ketones,Urine Negative (Negative); Leukocyte Esterase,Urine Negative (Negative); Nitrite,Urine Negative (Negative); PH,Urine 5.5 pH Units (5.0-8.0); Protein,Urine Trace mg/dL (Neg-Trace); Specific Gravity,Urine 1.019 (1.010-1.025); Urobilinogen,Urine Normal (Normal)
[2016-12-07 10:13] LABS: Bacteria,Urine None Seen per hpf (None-Few); Hyaline Casts,Urine None Seen per lpf (None-Few); RBC,Urine 0-3 per hpf (0-3); Squamous Epithelial Cell,Urine Moderate per lpf (None-Few)
[2016-12-07 10:15] LABS: Clarity,Urine Clear (Clear)
[2016-12-07] MEDS ORDERED: 0.9 % Sodium Chloride 500 ML IVC ONE (11:14)
[2016-12-07 14:45] LABS: Hematocrit 28.3 % (35.3-44.9); Hemoglobin 9.2 g/dL (11.5-15.4)
[2016-12-07] MEDS: 0.9 % Sodium Chloride 1,000 ML IVC SCH ×2 (15:10→23:32)
--- NOTE | 2016-12-07 19:56 | Venous Imaging Report ---
LE Venous Duplex Patient Name:Viviana Thorpe Order Number:[id number] Procedure Date:12/07/2016 Date:8Age:76 yrs Gender:Female Location:[facility] Room #: [id number] Instrument Room Technician:Eulogio Alfaro RN Referring MD:Marnie Flanagan MD manager rn case:Miguel Martinez DO Reading MD:Marcello Rowland MD , FACS Primary Indications:Possible DVT Secondary Indications: Risk Factors Yes/No Smoker Previous Yes Anticoagulants Yes Previous Vascular Surgery No Hx of DVT No Hx of Chemotherapy No Trauma to Veins No Recent Surgery Yes Hx of Superficial Phlebitis No [place] Filter No Impressions: Right lower extremity: normal superficial and deep exam. Left lower extremity: normal contralateral exam. Recommendations: Test completed on 12/07/2016 at 10:45:00 am. Findings Venous Duplex Results: Right: Venous imaging of the lower extremity reveals full patency and normal vessel compressibility of the right distal iliac, right common femoral, right superficial femoral, right popliteal, right posterior tibial, right peroneal, right great saphenous and right lesser saphenous. Doppler signals in the evaluated veins were normal. Left: Venous imaging of the lower extremity reveals full patency and normal vessel compressibility of the left common femoral. Doppler signals in the evaluated veins were normal. Prior Study: No prior study available for comparison. Lower Extremity Venous Duplex Side Vein Compress Spontaneous Flow Augment Diameter (cm) Depth (cm) Right Distal Iliac Normal Yes Phasic Yes Right Common Femoral Normal Yes Phasic Yes Right Superficial Femoral Normal Yes Phasic Yes Right Popliteal Normal Yes Phasic Yes Right Posterior Tibial Normal Yes Phasic Yes Right Peroneal Normal Yes Phasic Yes Right Great Saphenous Normal Yes Phasic Yes Right Lesser Saphenous Normal Yes Phasic Yes Left Common Femoral Normal Yes Phasic Yes Updated by Marcello Rowland MD, FACS on 12/07/2016 7:50:30 PM Marcello Rowland MD electronically signed on 12/07/2016 7:51:36 PM with status of Final
[2016-12-08] MEDS: *HR* OxyCODONE Immed Rel 5 MG TABLET PO PRN ×4 (00:41→20:23)
[2016-12-08] MEDS: Insulin LISPRO 300 UNITS/3 ML VIAL SQ SCH ×4 (08:02→20:23)
[2016-12-08] MEDS: APIXABAN 2.5 MG TABLET PO SCH ×2 (08:03→20:21)
[2016-12-08] MEDS: Magnesium Oxide 400 MG TABLET PO SCH ×2 (08:03→20:21)
[2016-12-08] MEDS: Metoprolol XL (24 HR) Succ 50 MG TAB.ER.24H PO SCH (08:03)
[2016-12-08] MEDS: Ascorbic Acid 500 MG TABLET PO SCH ×2 (08:04→16:25)
[2016-12-08] MEDS: Multivit/Ca/Min/Fe/FA 1 TAB TABLET PO SCH (08:04)
[2016-12-08] MEDS: (Calcium Carbonate/Vitamin D3 [Calcium 600 + D Tablet PO SCH ×2 (08:04→20:22)
[2016-12-08] MEDS: 0.9 % Sodium Chloride 1,000 ML IVC SCH ×3 (08:04→18:07)
--- NOTE | 2016-12-08 08:17 | Orthopedics Progress Note ---
Date of Encounter: 12/08/16 Time of Encounter: 08:16 - Assessment and Plan (1) Arthritis of right hip Current Visit: Yes Status: Acute (2) CAD (coronary artery disease) Current Visit: Yes Status: Chronic Qualifiers: Coronary Disease-Associated Artery/Lesion type: unspecified vessel or lesion type [place] vs. transplanted heart: unspecified whether [place] or transplanted heart Associated angina: angina presence unspecified Qualified Code(s): I25.10 - Atherosclerotic heart disease of [place] coronary artery without angina pectoris (3) History of CVA (cerebrovascular accident) Current Visit: Yes Status: Chronic (4) History of non-ST elevation myocardial infarction (NSTEMI) Current Visit: Yes Status: Chronic (5) Azotemia Current Visit: No Status: Chronic (6) Diverticulitis Current Visit: No Status: Chronic Qualifiers: Diverticulitis site: large intestine Diverticulitis bleeding: without bleeding Diverticulitis complication: without perforation or abscess Qualified Code(s): K57.32 - Diverticulitis of large intestine without perforation or abscess without bleeding (7) Hyperlipidemia Current Visit: No Status: Chronic Qualifiers: Hyperlipidemia type: unspecified Qualified Code(s): E78.5 - Hyperlipidemia , unspecified (8) Hypertension Current Visit: No Status: Chronic Qualifiers: Hypertension type: essential hypertension Qualified Code(s): I10 - Essential (primary) hypertension (9) Hypothyroidism Current Visit: No Status: Chronic Qualifiers: Hypothyroidism type: unspecified Qualified Code(s): E03.9 - Hypothyroidism , unspecified (10) Acute blood loss anemia Current Visit: Yes Status: Acute Subjective Interval history: Patient was seen this morning doing well without complaints. Afebrile vital signs stable. Operative extremity: Neurovascularly intact Dressing clean dry and intact Calves nontender Assessment and plan: Continue with postoperative care Labs pending plan for discharge today Objective Vital signs: Vital Signs Temp Pulse Resp BP Pulse Ox 12/08/16 06:49 98.9 F 78 16 114/68 95 12/08/16 04:00 99.3 F 71 17 108/59 94 L 12/08/16 00:00 98.2 F 66 16 125/72 95 12/07/16 20:00 98.9 F 69 16 105/57 93 L 12/07/16 14:33 98.2 F 59 16 84/42 93 L 12/07/16 10:48 98.2 F 69 18 94/58 94 L Intake and Output 12/07/16 12/08/16 12/08/16 23:59 07:59 15:59 Intake Total 1200 / 1200 400 / 400 950 / 950 Output Total 550 / 550 200 / 200 Balance 650 / 650 200 / 200 950 / 950 Intake: IV Fluids 1000 / 1000 950 / 950 0.9 % Sodium Chloride 1, 1000 / 1000 950 / 950 000 ML @ 125 mls/hr IVC . Q8H [facility] Rx#:[id number] Oral 200 / 200 400 / 400 Output: Urine 550 / 550 200 / 200 Other: # Voids 1 Blood Glucose* 172 145 - Labs CBC & BMP: 12/07/16 14:30 12/07/16 08:39 Labs: Abnormal lab results RBC 3.13 M/mcL (3.82-4.97) L 12/07/16 03:14 Hgb 9.2 g/dL (11.5-15.4) L 12/07/16 14:30 Hct 28.3 % (35.3-44.9) L 12/07/16 14:30 BUN 47 mg/dL (7-20) H 12/07/16 08:39 Creatinine 2.03 mg/dL (0.57-1.11) H 12/07/16 08:39 Est GFR ( Amer) 29 (> 60) L 12/07/16 08:39 Est GFR (Non-Af Amer) 24 (> 60) L 12/07/16 08:39 Glucose 136 mg/dL (70-99) H 12/07/16 08:39 POC Glucose 285 (58-89) H 12/05/16 21:49 Calcium 8.4 mg/dL (8.6-10.8) L 12/07/16 08:39 Phosphorus 6.4 mg/dL (2.3-4.7) H 12/07/16 03:14 Magnesium 1.4 mg/dL (1.6-2.6) L 12/07/16 03:14 Iron 46 mcg/dL (50-170) L 12/07/16 08:39 Ur Squamous Epith Cells Moderate per lpf (None-Few) H 12/07/16 09:43 - VTE Documentation of Mechanical Device: Venous foot pump, device Consult Discharge Plan - Plan Referrals: Jairo Richardson MD [Partnered Physician] - 01/03/17 8:35 am Esme Menon, PAC [Physician Rodent Control Worker] - 12/15/16 10:45 am Miguel Martinez, [Primary Care Provider] -
[2016-12-08 09:26] LABS: Calcium 7.7 mg/dL (8.6-10.8); Potassium 4.1 mEq/L (3.5-4.5)
--- NOTE | 2016-12-08 12:17 | Internal Med Progress Note ---
Date of Encounter: 12/08/16 Time of Encounter: 10:45 - Assessment and plan (1) Gastritis Current Visit: Yes Status: Acute Qualifiers: Chronicity: unspecified Qualified Code(s): K29.70 - Gastritis, unspecified , without bleeding (2) Diarrhea Current Visit: Yes Status: Acute Qualifiers: Diarrhea type: unspecified type Qualified Code(s): R19.7 - Diarrhea, unspecified (3) Acute blood loss anemia Current Visit: Yes Status: Acute (4) Acute kidney failure Current Visit: Yes Status: Acute Qualifiers: Acute renal failure type: unspecified Qualified Code(s): N17.9 - Acute kidney failure, unspecified - Time Spent With Patient Plan acute renal failure possibly secondary , dehydration and urinary retentio. straight Cath every 6 hours to Check CBC BMP in 2 days Patient needs follow- up with nephrology in 1 week. Report to MD if postvoiding residual more than 250.continue Protonix daily. need iron supplement on discharge.was her significant drop HER he, will add iron infusion x 1 dose.magnesium replaced and rechecked 25 - 35 minutes - Subjective Interval history: patient is feeling much better today,she denies any nausea or vomiting. No diarrhea since yesterday. Had postvoiding residual [id number]. Had some relief with straight ca. Renal function is improving - Constitutional Vitals: Temp Pulse Resp BP Pulse Ox 97.8 F 87 16 114/68 92 L 12/08/16 11:08 12/08/16 11:08 12/08/16 11:08 12/08/16 11:08 12/08/16 11:31 General appearance: Present: A&O X 3, pleasant, no acute distress, answers questions appropriately - Head Head exam: Present: atraumatic, normocephalic - Neck Neck exam general surgery: Present: supple, trachea midline. Absent: lymphadenopathy - Respiratory Respiratory exam: Present: decreased breath sounds. Absent: accessory muscle use, rales, rhonchi, wheezes - Cardiovascular Cardiovascular exam: Present: RRR, +S1, +S2. Absent: diastolic murmur, gallop, rubs, systolic murmur - GI/Abdominal GI/Abdominal exam: Present: normal bowel sounds, soft, tenderness (mild diffuse abdominal tenderness more in epigastric area), no peritoneal signs. Absent: distended - Extremities Exam Extremities exam: Present: warm, radial pulses palpable and symetrical. Absent : cyanotic, pedal edema - Neurological Exam Neurological exam: Present: CN II-XII intact, oriented X3, no focal deficits. Absent: pronater drift, facial droop, speech deficit Internal Medicine: Result - Labs CBC & Chem 7: 12/07/16 14:30 12/08/16 08:54 Labs: Short CBC 12/07/16 Range/Units 14:30 Hgb 9.2 L (11.5-15.4) g/dL Hct 28.3 L (35.3-44.9) % BMP 12/08/16 08:54 Sodium 138 Potassium 4.1 Chloride 106 Carbon Dioxide 23 BUN 31 H D Creatinine 1.10 Glucose 227 H Calcium 7.7 L Cardiac Enzymes 12/07/16 Range/Units 14:30 Troponin I 0.01 (0-0.03) ng/mL - Impressions Impressions Retroperitoneum Ultrasound 12/07/16 13:00 IMPRESSION: 1. Morphologically normal kidneys with no obstruction 2. Right renal cyst 3. Large postvoid residual D/ / Marcello Garza MD / Marcello Garza MD Interpreting Provider: Marcello Garza MD - VTE Documentation of Mechanical Device: Venous foot pump, device Consult Discharge Plan - Plan Referrals: Jairo Richardson MD [Partnered Physician] - 01/03/17 8:35 am Esme Menon, PAC [Physician Paid Search Analyst] - 12/15/16 10:45 am Miguel Martinez DO [Primary Care Provider] -
[2016-12-08] MEDS ORDERED: Iron Sucrose Complex 400 MG in 0.9 % Sodium Chloride 250 ML IVPB ONE (12:22)
[2016-12-08 12:28] LABS: Hematocrit 26.2 % (35.3-44.9); Hemoglobin 8.7 g/dL (11.5-15.4)
[2016-12-08 13:19] LABS: Magnesium 1.9 mg/dL (1.6-2.6)
[2016-12-08] MEDS ORDERED: Lactulose Oral Soln 20 GM/30 ML UDC PO ONE (15:37)
[2016-12-08] MEDS: Sennosides 8.6 MG TABLET PO SCH (20:21)
[2016-12-09] MEDS: 0.9 % Sodium Chloride 1,000 ML IVC SCH ×3 (02:10→19:05)
[2016-12-09 06:26] LABS: Basophils % 0.3 %; Eosinophils # 0.2 K/mcL (0.0-0.6); Eosinophils % 3.6 %; Hematocrit 25.6 % (35.3-44.9); Hemoglobin 8.4 g/dL (11.5-15.4); Immature Granulocytes % 0.3 % (0-4); Lymphocytes # 1.3 K/mcL (0.6-4.6); Mean Corpuscular HGB Conc 32.8 g/dL (31.6-35.5); Mean Corpuscular Hemoglobin 31.6 pg (28.0-33.3); Mean Corpuscular Volume 96.2 fL (83.0-100.0); Mean Platelet Volume 9.4 fL (9.4-12.4); Monocytes # 0.5 K/mcL (0.0-1.3); Monocytes % 8.7 %; Neutrophils # 3.8 K/mcL (1.6-8.9); Platelet Count 148 K/mcL (140-400); Red Blood Count 2.66 M/mcL (3.82-4.97); Red Cell Distribution Width 13.9 % (11.5-14.5); Segmented Neutrophils % 65.1 %
--- NOTE | 2016-12-09 06:36 | Orthopedics Progress Note ---
Date of Encounter: 12/09/16 Time of Encounter: 06:35 - Assessment and Plan (1) Arthritis of right hip Current Visit: Yes Status: Acute (2) CAD (coronary artery disease) Current Visit: Yes Status: Chronic Qualifiers: Coronary Disease-Associated Artery/Lesion type: unspecified vessel or lesion type [place] vs. transplanted heart: unspecified whether sam[place] or transplanted heart Associated angina: angina presence unspecified Qualified Code(s): I25.10 - Atherosclerotic heart disease of sam[place] coronary artery without angina pectoris (3) History of CVA (cerebrovascular accident) Current Visit: Yes Status: Chronic (4) History of non-ST elevation myocardial infarction (NSTEMI) Current Visit: Yes Status: Chronic (5) Azotemia Current Visit: No Status: Chronic (6) Diverticulitis Current Visit: No Status: Chronic Qualifiers: Diverticulitis site: large intestine Diverticulitis bleeding: without bleeding Diverticulitis complication: without perforation or abscess Qualified Code(s): K57.32 - Diverticulitis of large intestine without perforation or abscess without bleeding (7) Hyperlipidemia Current Visit: No Status: Chronic Qualifiers: Hyperlipidemia type: unspecified Qualified Code(s): E78.5 - Hyperlipidemia , unspecified (8) Hypertension Current Visit: No Status: Chronic Qualifiers: Hypertension type: essential hypertension Qualified Code(s): I10 - Essential (primary) hypertension (9) Hypothyroidism Current Visit: No Status: Chronic Qualifiers: Hypothyroidism type: unspecified Qualified Code(s): E03.9 - Hypothyroidism , unspecified (10) Acute blood loss anemia Current Visit: Yes Status: Acute Subjective Interval history: Patient was seen this morning doing well without complaints. Afebrile vital signs stable. Operative extremity: Neurovascularly intact Dressing clean dry and intact Calves nontender Assessment and plan: Continue with postoperative care Kidney function normalized, patient with urinary retention follow-up as outpatient workup started on Protonix, hemoglobin 8.5 holding steady shoes on and supplements. Follow-up 1 week. Objective Vital signs: Vital Signs Temp Pulse Resp BP Pulse Ox 12/09/16 00:00 98.7 F 69 17 105/63 96 12/08/16 20:00 98.9 F 84 18 157/78 95 12/08/16 15:14 97.9 F 83 16 117/68 93 L 12/08/16 11:31 92 L 12/08/16 11:08 97.8 F 87 16 114/68 84 L 12/08/16 06:49 98.9 F 78 16 114/68 95 Intake and Output 12/08/16 12/08/16 12/09/16 15:59 23:59 07:59 Intake Total 1500 / 1500 1200 / 1200 1450 / 1450 Output Total 1114 / 1114 200 / 200 1000 / 1000 Balance 386 / 386 1000 / 1000 450 / 450 Intake: IV Fluids 950 / 950 1000 / 1000 1000 / 1000 0.9 % Sodium Chloride 1, 950 / 950 1000 / 1000 1000 / 1000 000 ML @ 125 mls/hr IVC . Q8H [facility] Rx#:[id number] Oral 550 / 550 200 / 200 450 / 450 Output: Urine 450 / 450 200 / 200 450 / 450 Straight Cath 664 / 664 550 / 550 Other: Meal Dinner Percent of Meal Consumed 15% Stool Size Large Moderate Stool Consistency formed liquid Stool Characteristics Normal for Patient Stool Color Brown Brown # Bowel Movements 1 1 Blood Glucose* 220 181 - Labs CBC & BMP: 12/09/16 06:20 12/08/16 08:54 Labs: Abnormal lab results RBC 2.66 M/mcL (3.82-4.97) L 12/09/16 06:20 Hgb 8.4 g/dL (11.5-15.4) L 12/09/16 06:20 Hct 25.6 % (35.3-44.9) L 12/09/16 06:20 BUN 31 mg/dL (7-20) H D 12/08/16 08:54 Est GFR ( Amer) 58 (> 60) L 12/08/16 08:54 Est GFR (Non-Af Amer) 48 (> 60) L 12/08/16 08:54 BUN/Creatinine Ratio 28 (6-26) H 12/08/16 08:54 Glucose 227 mg/dL (70-99) H 12/08/16 08:54 POC Glucose 285 (58-89) H 12/05/16 21:49 Calcium 7.7 mg/dL (8.6-10.8) L 12/08/16 08:54 Phosphorus 6.4 mg/dL (2.3-4.7) H 12/07/16 03:14 Iron 46 mcg/dL (50-170) L 12/07/16 08:39 Ur Squamous Epith Cells Moderate per lpf (None-Few) H 12/07/16 09:43 Stool Occult Blood Positive (Negative) A 12/08/16 20:10 - VTE Documentation of Mechanical Device: Venous foot pump, device Consult Discharge Plan - Plan Referrals: Jairo Richardson MD [Partnered Physician] - 01/03/17 8:35 am Esme Menon, PAC [Physician Statement Distribution Clerk] - 12/15/16 10:45 am Miguel Martinez DO [Primary Care Provider] -
--- NOTE | 2016-12-09 06:54 | Electrocardiograph Report ---
[address] [place], [place] [address] Test Date: 2016-12-07 Pat Name: Viviana Thorpe Department: 114 Room: [facility] Gender: F Cargo Services Coordinator: : 1940 Requested By: Jairo Richardson Order Number: [id number] Reading MD: Slim Calvert MD Measurements Intervals [place] Rate: 63 P: 77 TN: 143 QRS: -42 QRSD: 101 T: 122 QT: 422 QTc: 430 Interpretive Statements SINUS RHYTHM WITH FREQUENT VENTRICULAR PREMATURE COMPLEXES IN A BIGEMINAL PATTERN MARKED LEFT AXIS DEVIATION LATERAL ISCHEMIA Electronically Signed On 12-09-2016 6:53:23 EST by Slim Calvert MD
[2016-12-09] MEDS: *HR* OxyCODONE Immed Rel 5 MG TABLET PO PRN ×2 (07:50→16:26)
[2016-12-09] MEDS: Sennosides 8.6 MG TABLET PO SCH ×2 (07:52→22:51)
[2016-12-09] MEDS: Magnesium Oxide 400 MG TABLET PO SCH ×2 (07:53→22:51)
[2016-12-09] MEDS: Multivit/Ca/Min/Fe/FA 1 TAB TABLET PO SCH (07:53)
[2016-12-09] MEDS: APIXABAN 2.5 MG TABLET PO SCH ×2 (07:53→22:51)
[2016-12-09] MEDS: (Calcium Carbonate/Vitamin D3 [Calcium 600 + D Tablet PO SCH ×2 (07:54→22:52)
[2016-12-09] MEDS: Metoprolol XL (24 HR) Succ 50 MG TAB.ER.24H PO SCH (07:54)
[2016-12-09] MEDS: Ascorbic Acid 500 MG TABLET PO SCH ×2 (07:54→17:12)
[2016-12-09] MEDS: Insulin LISPRO 300 UNITS/3 ML VIAL SQ SCH ×4 (07:57→22:52)
--- NOTE | 2016-12-09 09:10 | Internal Med Progress Note ---
Date of Encounter: 12/09/16 Time of Encounter: 09:09 - Assessment and plan (1) Gastritis Current Visit: Yes Status: Acute Qualifiers: Chronicity: unspecified Gastritis bleeding: with bleeding Qualified Code( s): K29.61 - Other gastritis with bleeding (2) Acute blood loss anemia Current Visit: Yes Status: Acute (3) Acute kidney failure Current Visit: Yes Status: Acute Qualifiers: Acute renal failure type: unspecified Qualified Code(s): N17.9 - Acute kidney failure, unspecified (4) Urinary retention Current Visit: Yes Status: Acute - Time Spent With Patient Plan Discussed with orthopedic team, with her hemoglobin trending down and stool for occult blood is positive, currently asymptomatic, history of gastroesophageal reflux and gastric ulcer in the past, may need EGD. Keep patient nothing by mouth. Discussed with the enterprise project manager. Possible EGD today. Patient had high postvoiding residual. Continue monitoring. A straight catheterization every 6 hours as needed. Based on her postvoiding residual may need to straight catheter on discharge counseling. 25 - 35 minutes - Subjective Interval history: Patient complaining of mild gastric discomfort,stool for occult blood was positive, hemoglobin is trending down almost 4.5 g since admission. Patient has history of gastric ulcer in the past - Constitutional Vitals: Temp Pulse Resp BP Pulse Ox 98.5 F 81 16 109/68 94 L 12/09/16 06:43 12/09/16 06:43 12/09/16 06:43 12/09/16 06:43 12/09/16 06:43 General appearance: Present: A&O X 3, pleasant, no acute distress, answers questions appropriately - Head Head exam: Present: atraumatic, normocephalic - Neck Neck exam general surgery: Present: supple, trachea midline. Absent: lymphadenopathy - Respiratory Respiratory exam: Present: decreased breath sounds. Absent: accessory muscle use, rales, rhonchi, wheezes - Cardiovascular Cardiovascular exam: Present: RRR, +S1, +S2. Absent: diastolic murmur, gallop, rubs, systolic murmur - GI/Abdominal GI/Abdominal exam: Present: normal bowel sounds, soft, tenderness (Epigastric and suprapubic tenderness), no peritoneal signs. Absent: distended - Neurological Exam Neurological exam: Present: CN II-XII intact, no focal deficits. Absent: pronater drift, facial droop, speech deficit Internal Medicine: Result - Labs CBC & Chem 7: 12/09/16 06:20 12/08/16 08:54 Labs: Short CBC 12/08/16 12/09/16 Range/Units 08:54 06:20 WBC 5.8 (4.3-11.1) K/mcL Hgb 8.7 L 8.4 L (11.5-15.4) g/dL Hct 26.2 L 25.6 L (35.3-44.9) % Plt Count 148 (140-400) K/mcL Neutrophils # 3.8 (1.6-8.9) K/mcL BMP 12/08/16 08:54 Sodium 138 Potassium 4.1 Chloride 106 Carbon Dioxide 23 BUN 31 H D Creatinine 1.10 Glucose 227 H Calcium 7.7 L - VTE Documentation of Mechanical Device: Venous foot pump, device Consult Discharge Plan - Plan Referrals: Jairo Richardson MD [Partnered Physician] - 01/03/17 8:35 am Esme Menon, PAC [Physician Rn Discharge] - 12/15/16 10:45 am Miguel Martinez DO [Primary Care Provider] -
--- NOTE | 2016-12-09 12:05 | Gastroenterology Consult Note ---
<GrayEusebio august Jerry - Last Filed: 12/09/16 12:03> Date of Encounter: 12/09/16 Time of Encounter: 10:45 - Assessment and plan (1) Acute blood loss anemia Current Visit: Yes Status: Acute Assessment and plan: EGD and colonoscopy on Monday to r/o esophagitis, gastritis, duodenitis, PUD, MW tear, AVM, ttumor, polyp, colitis or anorectal pathology. Clear liquid diet Monday, no red or purple. NPO at midnight Monday night. Dulcolax Monday and Monday at 1500. If unable tolerate NuLytely please use MiraLAX prep. If not clear by 6 AM, give 2 tap water enemas. FOBT positive. Continue to monitor CBC and transfuse PRBC as needed. (2) Midepigastric pain Current Visit: Yes Status: Acute Assessment and plan: Continue omeprazole. Plan for EGD on Monday. Keep NPO Monday night at midnight. (3) Arthritis of right hip Current Visit: Yes Status: Acute Assessment and plan: S/p right hip replacement. - Time Spent With Patient Total time spent is greater than 50% in coordination of care (as documented) at patient's floor/unit and/or counseling patient: GI History of Present Illness - Data of Consult Patient: new to practice Consult date: 12/09/16 Requesting Physician: Jairo Richardson MD - Consult Narrative Reason for consult: GI Bleed History of present illness: Ms. Thorpe is a 76 year old female with PMHx of CVA, DM, GERD, glaucoma, HLD, HTN, migraine presented to the hospital for right total hip replacement on 12/05. She began to complain of chest pain and troponins were negative x3. Hgb began to drop on 12/07 to 9.2 and this AM Hgb 8.4. On admission Hgb 12.9. FOBT positive on 12/08. No diarrhea, constipation, nausea, or vomiting. No melena or hematochezia noted. We have been consulted to evaluate her anemia. Procedures: Colonoscopy 06/19/2015 Dr. Hogan: Nonbleeding internal hemorrhoids, diverticulosis NSAIDs: ASA Anticoagulation: Eliquis Past Med Surg Social Fam HX - Past Medical History Medical history: arthritis, CVA, diabetes, GERD, glaucoma, hyperlipidemia, hypertension, migraine, osteoporosis, other Psychiatric history: no psych history - Past Surgical History Surgical History: appendectomy, hysterectomy, knee replacement, orthopedic, other, SONIA/BSO, thyroidectomy, other - Social History Smoking Status: Former smoker Smokeless Tobacco Status: No Alcohol use: none Drug use: none - Family History Mother Age: 73 Living Status: Hx Family Cardiac Disorders: Yes Hx Family Cancer: Yes Father Living Status: Age at : 68 Hx Family Respiratory Disorders: Yes (copd) Hx Family Cancer: Yes Daughter Adopted: No Living Status: Still Living Hx Family Cardiac Disorders: Yes (aortic aneurysm (daughter), Heart disease) Hx Family Respiratory Disorders: No Hx Family Cancer: Yes (Uterine & bladder (patients mother), Pancreatic (pt.dad) , Uterine (Sisters)) Hx Family GI Disorders: Yes (Chrones) Hx Family Endocrine Disorder: Yes Hx Family Neuromuscular Disorders: No Hx Family Neurologic Disorders: No Hx Family HEENT Disorders: No Hx Family Autoimmune Disorders: Yes (RA (patients father)) - Gastrointestinal Gastrointestinal: Present: as per HPI - Constitutional Constitutional: as per HPI - EENT Eyes: as per HPI Ears: Present: as per HPI Nose, mouth and throat: Present: as per HPI - Cardiovascular Cardiovascular ROS: Present: as per HPI - Respiratory Respiratory IM: Present: as per HPI - Genitourinary Genitourinary: Absent: change in color, Urinary frequency - Neurological ROS Neurological GI: Present: as per HPI - Hematologic/Lymphatic Hematologic/Lymphatic pediatric: Present: as per HPI - Musculoskeletal Musculoskeletal ROS GI: Present: as per HPI - Integumentary Integumentary GI: Present: as per HPI - Psychiatric ROS Psychiatric GI: Present: as per HPI - Endocrine Endocrine IM: Present: as per HPI - Constitutional Vitals: Temp Pulse Resp BP Pulse Ox 98.7 F 76 18 104/65 95 12/09/16 10:47 12/09/16 10:47 12/09/16 10:47 12/09/16 10:47 12/09/16 10:47 General appearance: Present: cooperative, A&O X 3, no acute distress, answers questions appropriately - Head Head exam: Present: atraumatic, normocephalic - Eye Eye exam: Present: normal appearance, sclera anicteric - ENT ENT exam: Present: mucous membranes moist - Neck Neck exam general surgery: Present: normal inspection, trachea midline - Respiratory Respiratory exam: Present: decreased breath sounds, CTAB. Absent: rales, rhonchi - Cardiovascular Cardiovascular exam: Present: RRR, +S1, +S2 - GI/Abdominal GI/Abdominal exam: Present: normal bowel sounds, soft, tenderness (midepigastric ), no peritoneal signs. Absent: distended, firm, guarding - Rectal Rectal exam: Present: deferred - Extremities Exam Extremities exam: Present: warm - Neurological Exam Neurological exam: Present: no focal deficits - Psychiatric Psychiatric exam: Present: normal affect, normal mood - Skin Skin exam: Present: dry, intact, normal color, warm Additional comments: Right hip dressing. Results - Labs CBC & Chem 7: 12/09/16 06:20 12/08/16 08:54 Labs: Last Result Calcium 7.7 mg/dL (8.6-10.8) L 12/08/16 08:54 Iron 46 mcg/dL (50-170) L 12/07/16 08:39 % Saturation 15 % (15-50) 12/07/16 08:39 Transferrin 220 mg/dL (180-382) 12/07/16 08:39 Troponin I 0.01 ng/mL (0-0.03) 12/07/16 14:30 Vitamin B12 701 pg/mL (213-816) 12/07/16 08:39 Stool Occult Blood Positive (Negative) A 12/08/16 20:10 Entire Visit Hgb 8.4 g/dL (11.5-15.4) L 12/09/16 06:20 Hct 25.6 % (35.3-44.9) L 12/09/16 06:20 Lipase 25 Units/L (8-78) 12/07/16 03:14 - Impressions Impressions Hip X-Ray 12/05/16 00:01 IMPRESSION: Normal postoperative changes recent right total hip arthroplasty. D/ / 12/05/2016 22:28:49 Blu Bruner MD / [place] Interpreting Provider: Blu Bruner MD Consult Discharge Plan - Plan Referrals: Jairo Richardson MD [Partnered Physician] - 01/03/17 8:35 am Esme Menon, PAC [Physician Privacy Specialist] - 12/15/16 10:45 am Miguel Martinez DO [Primary Care Provider] - <Maria LuzTaryn - Last Filed: 12/09/16 14:27> - Time Spent With Patient Total time spent is greater than 50% in coordination of care (as documented) at patient's floor/unit and/or counseling patient: GI History of Present Illness - Data of Consult Requesting Physician: Jairo Richardson MD - Consult Narrative History of present illness: Ms. Thorpe is a 76 year old female - Constitutional Vitals: Temp Pulse Resp BP Pulse Ox 98.7 F 76 18 104/65 95 12/09/16 10:47 12/09/16 10:47 12/09/16 10:47 12/09/16 10:47 12/09/16 10:47 Results - Labs CBC & Chem 7: 12/09/16 06:20 12/08/16 08:54 Labs: Last Result Calcium 7.7 mg/dL (8.6-10.8) L 12/08/16 08:54 Iron 46 mcg/dL (50-170) L 12/07/16 08:39 % Saturation 15 % (15-50) 12/07/16 08:39 Transferrin 220 mg/dL (180-382) 12/07/16 08:39 Troponin I 0.01 ng/mL (0-0.03) 12/07/16 14:30 Vitamin B12 701 pg/mL (213-816) 12/07/16 08:39 Stool Occult Blood Positive (Negative) A 12/08/16 20:10 Entire Visit Hgb 8.4 g/dL (11.5-15.4) L 12/09/16 06:20 Hct 25.6 % (35.3-44.9) L 12/09/16 06:20 Lipase 25 Units/L (8-78) 12/07/16 03:14 - Impressions Impressions Hip X-Ray 12/05/16 00:01 IMPRESSION: Normal postoperative changes recent right total hip arthroplasty. D/ / 12/05/2016 22:28:49 Blu Bruner MD / [place] Interpreting Provider: Blu Bruner MD - Attending Attestation I examined this patient and my medical decision-making was reviewed with the WEB MACHINE TENDER/PA/Advanced Practice Nurse/Resident Physician. I agree with the documented findings, disposition and treatment plan as described except to the extent set forth below.
[2016-12-10] MEDS: *HR* OxyCODONE Immed Rel 5 MG TABLET PO PRN ×4 (00:47→23:44)
[2016-12-10] MEDS: Insulin LISPRO 300 UNITS/3 ML VIAL SQ SCH ×4 (08:39→20:20)
[2016-12-10] MEDS: Metoprolol XL (24 HR) Succ 50 MG TAB.ER.24H PO SCH (08:42)
[2016-12-10] MEDS: Ascorbic Acid 500 MG TABLET PO SCH ×2 (08:42→16:57)
[2016-12-10] MEDS: Magnesium Oxide 400 MG TABLET PO SCH ×2 (08:43→20:04)
[2016-12-10] MEDS: Multivit/Ca/Min/Fe/FA 1 TAB TABLET PO SCH (08:44)
[2016-12-10] MEDS: APIXABAN 2.5 MG TABLET PO SCH ×2 (08:44→20:04)
[2016-12-10] MEDS: (Calcium Carbonate/Vitamin D3 [Calcium 600 + D Tablet PO SCH ×2 (08:46→20:05)
[2016-12-10] MEDS: Sennosides 8.6 MG TABLET PO SCH ×2 (08:46→20:04)
[2016-12-10] MEDS: 0.9 % Sodium Chloride 1,000 ML IVC SCH ×2 (08:47→17:00)
[2016-12-10 13:21] LABS: Hematocrit 26.8 % (35.3-44.9); Hemoglobin 8.5 g/dL (11.5-15.4)
[2016-12-10 13:33] LABS: BUN/Creatinine Ratio 15 (6-26); Blood Urea Nitrogen 11 mg/dL (7-20); Carbon Dioxide 24 mEq/L (19-29); Chloride 110 mEq/L (98-109); Glucose 157 mg/dL (70-99); Osmolality,Calculated 295 (280-300); Sodium 141 mEq/L (136-145); eGFR For African Americans > 60 (> 60); eGFR For Non-African Americans > 60 (> 60)
--- NOTE | 2016-12-10 14:15 | Orthopedics Progress Note ---
Date of Encounter: 12/10/16 Time of Encounter: 14:09 Subjective Principal diagnosis: Right hip arthritis Interval history: Patient is comfortable with no complaints Dressing clean dry and intact Calves are soft and nontender Neurovascular intact Patient has a planned EGD/colonoscopy on Monday Objective Vital signs: Vital Signs Temp Pulse Resp BP Pulse Ox 12/10/16 10:19 98.5 F 83 16 132/64 96 12/10/16 06:28 98.8 F 76 18 127/68 95 12/09/16 23:47 99.3 F 74 17 131/72 94 L 12/09/16 20:46 98.6 F 71 15 124/57 93 L 12/09/16 14:53 98.5 F 79 16 107/61 96 Intake and Output 12/09/16 12/10/16 12/10/16 23:59 07:59 15:59 Intake Total 1200 / 1200 1000 / 1000 Output Total 150 / 150 Balance 1200 / 1200 850 / 850 Intake: IV Fluids 1000 / 1000 1000 / 1000 0.9 % Sodium Chloride 1, 1000 / 1000 1000 / 1000 000 ML @ 125 mls/hr IVC . Q8H [facility] Rx#:[id number] Oral 200 / 200 Output: Urine 150 / 150 Other: # Voids 1 # Urine Diapers 1 Blood Glucose* 112 150 198 - Labs CBC & BMP: 12/10/16 12:53 12/10/16 12:53 Labs: Abnormal lab results RBC 2.66 M/mcL (3.82-4.97) L 12/09/16 06:20 Hgb 8.5 g/dL (11.5-15.4) L 12/10/16 12:53 Hct 26.8 % (35.3-44.9) L 12/10/16 12:53 Chloride 110 mEq/L (98-109) H 12/10/16 12:53 Glucose 157 mg/dL (70-99) H 12/10/16 12:53 POC Glucose 263 (58-89) H 12/09/16 17:09 Calcium 8.0 mg/dL (8.6-10.8) L 12/10/16 12:53 Phosphorus 6.4 mg/dL (2.3-4.7) H 12/07/16 03:14 Iron 46 mcg/dL (50-170) L 12/07/16 08:39 Ur Squamous Epith Cells Moderate per lpf (None-Few) H 12/07/16 09:43 Stool Occult Blood Positive (Negative) A 12/08/16 20:10 - VTE Documentation of Mechanical Device: Venous foot pump, device Consult Discharge Plan - Plan Referrals: Jairo Richardson MD [Partnered Physician] - 01/03/17 8:35 am Esme Menon PAC [Physician Pullboat Engineer] - 12/15/16 10:45 am Miguel Martinez DO [Primary Care Provider] -
--- NOTE | 2016-12-10 18:08 | Internal Med Progress Note ---
Date of Encounter: 12/10/16 Time of Encounter: 18:05 - Assessment and plan (1) Acute blood loss anemia Current Visit: Yes Status: Acute Assessment and plan: occult blood is positive h/o gastric ulcers and diverticulitis. planned for EGD on monday. has been on elliquis since last yr when she had a stroke and her plavix was changed to elliquis. she says she has not had any bleeds after being on elliquis until now. will wait EGD results, discuss safety on continuing elliquis currently denies any complains, hb today 8.5 monitor cbc, transfuse prn. (2) Acute kidney injury Current Visit: Yes Status: Acute Assessment and plan: resolved (3) Chest pain Current Visit: Yes Status: Acute Assessment and plan: resolved. Qualifiers: Chest pain type: unspecified Qualified Code(s): R07.9 - Chest pain, unspecified - Time Spent With Patient 25 - 35 minutes - Subjective Interval history: seen at the bedside today, denies any complains. no all or hematemesis. plan for EGD/colonoscopy on monday for anemia, haem occult positive. - Constitutional Vitals: Temp Pulse Resp BP Pulse Ox 98 F 78 16 127/68 94 L 12/10/16 14:19 12/10/16 14:19 12/10/16 14:19 12/10/16 14:19 12/10/16 14:19 General appearance: Present: A&O X 3, pleasant, no acute distress, answers questions appropriately Exam: - Head Head exam: Present: atraumatic, normal inspection, normocephalic - Eye Eye exam: Present: EOMI, normal appearance, PERRL - ENT ENT exam: Present: mucous membranes moist - Respiratory Respiratory exam: Present: CTAB. Absent: decreased breath sounds, rhonchi, wheezes - Cardiovascular s1 and s2, no mr//g - GI/Abdominal GI/Abdominal exam IM: Present: soft. Absent: guarding, rebound, rigid, tenderness - Extremities Exam Extremities exam IM: Absent: calf tenderness - Neurological Exam Neurological exam: Present: alert, CN II-XII intact, oriented X3 Internal Medicine: Result - Labs CBC & Chem 7: 12/10/16 12:53 12/10/16 12:53 Labs: Short CBC 12/10/16 Range/Units 12:53 Hgb 8.5 L (11.5-15.4) g/dL Hct 26.8 L (35.3-44.9) % BMP 12/10/16 12:53 Sodium 141 Potassium 4.0 Chloride 110 H Carbon Dioxide 24 BUN 11 D Creatinine 0.71 Glucose 157 H Calcium 8.0 L - VTE Documentation of Mechanical Device: Venous foot pump, device Consult Discharge Plan - Plan Referrals: Jairo Richardson MD [Partnered Physician] - 01/03/17 8:35 am Esme Menon, PAC [Physician Senior Engineering Specialist] - 12/15/16 10:45 am Miguel Martinez DO [Primary Care Provider] -
[2016-12-11] MEDS: 0.9 % Sodium Chloride 1,000 ML IVC SCH ×4 (02:58→20:57)
[2016-12-11] MEDS: *HR* OxyCODONE Immed Rel 5 MG TABLET PO PRN ×3 (08:12→20:59)
[2016-12-11] MEDS: APIXABAN 2.5 MG TABLET PO SCH ×2 (08:13→20:58)
[2016-12-11] MEDS: Sennosides 8.6 MG TABLET PO SCH ×2 (08:13→21:00)
[2016-12-11] MEDS: Ascorbic Acid 500 MG TABLET PO SCH ×2 (08:13→15:44)
[2016-12-11] MEDS: Magnesium Oxide 400 MG TABLET PO SCH ×2 (08:14→20:59)
[2016-12-11] MEDS: Metoprolol XL (24 HR) Succ 50 MG TAB.ER.24H PO SCH (08:14)
[2016-12-11] MEDS: Multivit/Ca/Min/Fe/FA 1 TAB TABLET PO SCH (08:15)
[2016-12-11] MEDS: (Calcium Carbonate/Vitamin D3 [Calcium 600 + D Tablet PO SCH ×2 (08:16→21:00)
[2016-12-11] MEDS: Insulin LISPRO 300 UNITS/3 ML VIAL SQ SCH ×4 (08:16→21:05)
[2016-12-11 12:15] LABS: Basophils % 0.4 %; Eosinophils # 0.2 K/mcL (0.0-0.6); Eosinophils % 2.7 %; Hematocrit 26.1 % (35.3-44.9); Hemoglobin 8.5 g/dL (11.5-15.4); Immature Granulocytes % 0.7 % (0-4); Lymphocytes # 1.1 K/mcL (0.6-4.6); Lymphocytes % 16.7 %; Mean Corpuscular HGB Conc 32.6 g/dL (31.6-35.5); Mean Corpuscular Hemoglobin 31.5 pg (28.0-33.3); Mean Corpuscular Volume 96.7 fL (83.0-100.0); Mean Platelet Volume 9.1 fL (9.4-12.4); Monocytes # 0.6 K/mcL (0.0-1.3); Monocytes % 8.4 %; Neutrophils # 4.8 K/mcL (1.6-8.9); Nucleated Red Blood Cells 0.6 /100 WBC (0); Platelet Count 174 K/mcL (140-400); Red Cell Distribution Width 14.3 % (11.5-14.5); Segmented Neutrophils % 71.1 %
--- NOTE | 2016-12-11 12:16 | Orthopedics Progress Note ---
Date of Encounter: 12/11/16 Time of Encounter: 12:16 Subjective Principal diagnosis: Right hip arthritis Interval history: Patient is comfortable with no complaints Dressing clean dry and intact Calves are soft and nontender Neurovascular intact Patient has a planned EGD on Monday Objective Vital signs: Vital Signs Temp Pulse Resp BP Pulse Ox 12/11/16 11:26 98.0 F 78 16 143/81 95 12/11/16 06:40 97.9 F 73 16 149/86 95 12/11/16 00:00 98.2 F 82 16 126/79 94 L 12/10/16 20:42 98.4 F 82 16 162/84 94 L 12/10/16 14:19 98 F 78 16 127/68 94 L Intake and Output 12/10/16 12/11/16 12/11/16 23:59 07:59 15:59 Intake Total 1350 / 1350 1200 / 1200 1000 / 1000 Output Total 450 / 450 300 / 300 200 / 200 Balance 900 / 900 900 / 900 800 / 800 Intake: IV Fluids 1000 / 1000 1000 / 1000 1000 / 1000 0.9 % Sodium Chloride 1, 1000 / 1000 1000 / 1000 1000 / 1000 000 ML @ 125 mls/hr IVC . Q8H [facility] Rx#:[id number] Oral 350 / 350 200 / 200 Output: Urine 450 / 450 300 / 300 200 / 200 Other: Stool Size Small Small Smear Stool Consistency loose loose soft Stool Color Brown Brown Brown Green # Voids 1 # Bowel Movements 1 1 Blood Glucose* 145 162 193 - Labs CBC & BMP: 12/10/16 12:53 12/10/16 12:53 Labs: Abnormal lab results RBC 2.66 M/mcL (3.82-4.97) L 12/09/16 06:20 Hgb 8.5 g/dL (11.5-15.4) L 12/10/16 12:53 Hct 26.8 % (35.3-44.9) L 12/10/16 12:53 Chloride 110 mEq/L (98-109) H 12/10/16 12:53 Glucose 157 mg/dL (70-99) H 12/10/16 12:53 POC Glucose 193 (58-89) H 12/11/16 11:22 Calcium 8.0 mg/dL (8.6-10.8) L 12/10/16 12:53 Phosphorus 6.4 mg/dL (2.3-4.7) H 12/07/16 03:14 Iron 46 mcg/dL (50-170) L 12/07/16 08:39 Ur Squamous Epith Cells Moderate per lpf (None-Few) H 12/07/16 09:43 Stool Occult Blood Positive (Negative) A 12/08/16 20:10 - VTE Documentation of Mechanical Device: Venous foot pump, device Consult Discharge Plan - Plan Referrals: Jairo Richardson MD [Partnered Physician] - 01/03/17 8:35 am Esme Menon, KELVIN [Physician Administrative Supervisor] - 12/15/16 10:45 am Miguel Martinez DO [Primary Care Provider] -
[2016-12-11 12:28] LABS: BUN/Creatinine Ratio 11 (6-26); Blood Urea Nitrogen 8 mg/dL (7-20); Calcium 7.6 mg/dL (8.6-10.8); Carbon Dioxide 24 mEq/L (19-29); Chloride 109 mEq/L (98-109); Glucose 165 mg/dL (70-99); Osmolality,Calculated 290 (280-300); Sodium 139 mEq/L (136-145); eGFR For African Americans > 60 (> 60); eGFR For Non-African Americans > 60 (> 60)
[2016-12-11] MEDS ORDERED: SODIUM CHLORIDE/NAHCO3/KCL/PEG 4,000 ML SOLN.RECON PO ONE (17:00)
--- NOTE | 2016-12-11 18:40 | Internal Med Progress Note ---
Date of Encounter: 12/11/16 Time of Encounter: 18:39 - Assessment and plan (1) Acute blood loss anemia Current Visit: Yes Status: Acute Assessment and plan: occult blood is positive h/o gastric ulcers and diverticulitis. planned for EGD on monday. has been on elliquis since last yr when she had a stroke and her plavix was changed to elliquis. she says she has not had any bleeds after being on elliquis until now. will wait EGD results, discuss safety on continuing elliquis currently denies any complains, hb today 8.5 monitor cbc, transfuse prn. (2) Acute kidney injury Current Visit: Yes Status: Acute Assessment and plan: resolved (3) Chest pain Current Visit: Yes Status: Acute Assessment and plan: resolved. Qualifiers: Chest pain type: unspecified Qualified Code(s): R07.9 - Chest pain, unspecified - Time Spent With Patient 25 - 35 minutes - Subjective Interval history: seen at the bedside today, denies any complains. no all or hematemesis. plan for EGD/colonoscopy tomm for anemia, haem occult positive. has been drinking golyteley and having bowel movements - Constitutional Vitals: Temp Pulse Resp BP Pulse Ox 98.4 F 73 16 137/78 93 L 12/11/16 14:10 12/11/16 14:10 12/11/16 14:10 12/11/16 14:10 12/11/16 14:10 General appearance: Present: A&O X 3, pleasant, no acute distress, answers questions appropriately Exam: - Head Head exam: Present: atraumatic, normal inspection, normocephalic - Eye Eye exam: Present: EOMI, normal appearance, PERRL - ENT ENT exam: Present: mucous membranes moist - Respiratory Respiratory exam: Present: CTAB. Absent: decreased breath sounds, rhonchi, wheezes - Cardiovascular s1 and s2, no mr//g - GI/Abdominal GI/Abdominal exam IM: Present: soft. Absent: guarding, rebound, rigid, tenderness - Extremities Exam Extremities exam IM: Absent: calf tenderness - Neurological Exam Neurological exam: Present: alert, CN II-XII intact, oriented X3 Internal Medicine: Result - Labs CBC & Chem 7: 12/11/16 12:04 12/11/16 12:04 Labs: Short CBC 12/11/16 Range/Units 12:04 WBC 6.8 (4.3-11.1) K/mcL Hgb 8.5 L (11.5-15.4) g/dL Hct 26.1 L (35.3-44.9) % Plt Count 174 (140-400) K/mcL Neutrophils # 4.8 (1.6-8.9) K/mcL BMP 12/11/16 12:04 Sodium 139 Potassium 4.0 Chloride 109 Carbon Dioxide 24 BUN 8 Creatinine 0.70 Glucose 165 H Calcium 7.6 L - VTE Documentation of Mechanical Device: Venous foot pump, device Consult Discharge Plan - Plan Referrals: Jairo Richardson MD [Partnered Physician] - 01/03/17 8:35 am Esme Menon, PAC [Physician Machine Operator Slitter Technician] - 12/15/16 10:45 am Miguel Martinez DO [Primary Care Provider] -
[2016-12-12] MEDS: *HR* OxyCODONE Immed Rel 5 MG TABLET PO PRN (05:11)
[2016-12-12 05:15] LABS: Basophils % 0.5 %; Eosinophils # 0.2 K/mcL (0.0-0.6); Eosinophils % 3.7 %; Hematocrit 26.9 % (35.3-44.9); Hemoglobin 8.8 g/dL (11.5-15.4); Immature Granulocytes % 0.5 % (0-4); Lymphocytes # 1.2 K/mcL (0.6-4.6); Lymphocytes % 19.2 %; Mean Corpuscular HGB Conc 32.7 g/dL (31.6-35.5); Mean Corpuscular Hemoglobin 32.1 pg (28.0-33.3); Mean Corpuscular Volume 98.2 fL (83.0-100.0); Mean Platelet Volume 9.7 fL (9.4-12.4); Monocytes # 0.5 K/mcL (0.0-1.3); Monocytes % 8.6 %; Neutrophils # 4.2 K/mcL (1.6-8.9); Nucleated Red Blood Cells 0.5 /100 WBC (0); Platelet Count 185 K/mcL (140-400); Red Blood Count 2.74 M/mcL (3.82-4.97); Red Cell Distribution Width 14.6 % (11.5-14.5); Segmented Neutrophils % 67.5 %
[2016-12-12 05:28] LABS: BUN/Creatinine Ratio 8 (6-26); Calcium 7.7 mg/dL (8.6-10.8); Carbon Dioxide 21 mEq/L (19-29); Chloride 111 mEq/L (98-109); Glucose 133 mg/dL (70-99); Osmolality,Calculated 289 (280-300); Potassium 3.6 mEq/L (3.5-4.5); Sodium 140 mEq/L (136-145); eGFR For African Americans > 60 (> 60); eGFR For Non-African Americans > 60 (> 60)
[2016-12-12 05:32] LABS: Blood Urea Nitrogen 5 mg/dL (7-20)
[2016-12-12] MEDS: 0.9 % Sodium Chloride 1,000 ML IVC SCH ×2 (06:30→23:27)
--- NOTE | 2016-12-12 06:32 | Orthopedics Progress Note ---
Date of Encounter: 12/12/16 Time of Encounter: 06:31 - Assessment and Plan (1) Arthritis of right hip Current Visit: Yes Status: Acute (2) CAD (coronary artery disease) Current Visit: Yes Status: Chronic Qualifiers: Coronary Disease-Associated Artery/Lesion type: unspecified vessel or lesion type [place] vs. transplanted heart: unspecified whether [place] or transplanted heart Associated angina: angina presence unspecified Qualified Code(s): I25.10 - Atherosclerotic heart disease of [place] coronary artery without angina pectoris (3) History of CVA (cerebrovascular accident) Current Visit: Yes Status: Chronic (4) History of non-ST elevation myocardial infarction (NSTEMI) Current Visit: Yes Status: Chronic (5) Azotemia Current Visit: No Status: Chronic (6) Diverticulitis Current Visit: No Status: Chronic Qualifiers: Diverticulitis site: large intestine Diverticulitis bleeding: without bleeding Diverticulitis complication: without perforation or abscess Qualified Code(s): K57.32 - Diverticulitis of large intestine without perforation or abscess without bleeding (7) Hyperlipidemia Current Visit: No Status: Chronic Qualifiers: Hyperlipidemia type: unspecified Qualified Code(s): E78.5 - Hyperlipidemia , unspecified (8) Hypertension Current Visit: No Status: Chronic Qualifiers: Hypertension type: essential hypertension Qualified Code(s): I10 - Essential (primary) hypertension (9) Hypothyroidism Current Visit: No Status: Chronic Qualifiers: Hypothyroidism type: unspecified Qualified Code(s): E03.9 - Hypothyroidism , unspecified (10) Acute blood loss anemia Current Visit: Yes Status: Acute Subjective Principal diagnosis: Right hip arthritis Interval history: Patient was seen this morning doing well without complaints. Afebrile vital signs stable. Operative extremity: Neurovascularly intact Dressing clean dry and intact Calves nontender Assessment and plan: Continue with postoperative care Patient stable orthopedic working for GI bleed Objective Vital signs: Vital Signs Temp Pulse Resp BP Pulse Ox 12/12/16 05:05 97.7 F 77 16 110/67 96 12/12/16 00:29 98.4 F 62 18 100/72 94 L 12/11/16 21:31 97 12/11/16 20:38 97.9 F 82 18 161/74 97 12/11/16 14:10 98.4 F 73 16 137/78 93 L 12/11/16 11:26 98.0 F 78 16 143/81 95 12/11/16 06:40 97.9 F 73 16 149/86 95 Intake and Output 12/11/16 12/11/16 12/12/16 15:59 23:59 07:59 Intake Total 1000 / 1000 1300 / 1300 1000 / 1000 Output Total 700 / 700 890 / 890 1050 / 1050 Balance 300 / 300 410 / 410 -50 / -50 Intake: IV Fluids 1000 / 1000 1000 / 1000 1000 / 1000 0.9 % Sodium Chloride 1, 1000 / 1000 1000 / 1000 1000 / 1000 000 ML @ 125 mls/hr IVC . Q8H [facility] Rx#:[id number] Oral 300 / 300 Output: Urine 700 / 700 400 / 400 325 / 325 Stool 200 / 200 Urine/Stool Mix 490 / 490 525 / 525 Other: Stool Size Moderate Large Small Stool Consistency liquid liquid liquid Stool Color Brown Brown Pale Green Blood Glucose* 193 202 - Labs CBC & BMP: 12/12/16 05:06 12/12/16 05:06 Labs: Abnormal lab results RBC 2.74 M/mcL (3.82-4.97) L 12/12/16 05:06 Hgb 8.8 g/dL (11.5-15.4) L 12/12/16 05:06 Hct 26.9 % (35.3-44.9) L 12/12/16 05:06 RDW 14.6 % (11.5-14.5) H 12/12/16 05:06 Nucleated RBCs/100 WBC 0.5 /100 WBC (0) H 12/12/16 05:06 Chloride 111 mEq/L (98-109) H 12/12/16 05:06 BUN 5 mg/dL (7-20) L 12/12/16 05:06 Glucose 133 mg/dL (70-99) H 12/12/16 05:06 POC Glucose 202 (58-89) H 12/11/16 19:56 Calcium 7.7 mg/dL (8.6-10.8) L 12/12/16 05:06 Phosphorus 6.4 mg/dL (2.3-4.7) H 12/07/16 03:14 Iron 46 mcg/dL (50-170) L 12/07/16 08:39 Ur Squamous Epith Cells Moderate per lpf (None-Few) H 12/07/16 09:43 Stool Occult Blood Positive (Negative) A 12/08/16 20:10 - VTE Documentation of Mechanical Device: Venous foot pump, device Consult Discharge Plan - Plan Referrals: Jairo Richardson MD [Partnered Physician] - 01/03/17 8:35 am Esme Menon PAC [Physician Director Of Creative Services] - 12/15/16 10:45 am Miguel Martinez DO [Primary Care Provider] -
[2016-12-12] MEDS: Insulin LISPRO 300 UNITS/3 ML VIAL SQ SCH ×4 (08:12→20:15)
[2016-12-12] MEDS: *HR* HYDROmorphone (PF) 1 MG/ML SYRINGE IVP PRN ×3 (09:51→23:32)
[2016-12-12] MEDS: Ascorbic Acid 500 MG TABLET PO SCH ×2 (12:24→19:40)
[2016-12-12] MEDS: APIXABAN 2.5 MG TABLET PO SCH ×2 (12:25→20:14)
[2016-12-12] MEDS: Magnesium Oxide 400 MG TABLET PO SCH ×2 (12:25→20:14)
[2016-12-12] MEDS: (Calcium Carbonate/Vitamin D3 [Calcium 600 + D Tablet PO SCH ×2 (12:25→20:15)
[2016-12-12] MEDS: Sennosides 8.6 MG TABLET PO SCH ×2 (12:26→20:15)
[2016-12-12] MEDS: Metoprolol XL (24 HR) Succ 50 MG TAB.ER.24H PO SCH (12:26)
[2016-12-12] MEDS: Multivit/Ca/Min/Fe/FA 1 TAB TABLET PO SCH (12:26)
[2016-12-12] MEDS ORDERED: *HR* Midazolam HCl 5 MG/5 ML VIAL IVP ONE (16:58)
[2016-12-12] MEDS ORDERED: *HR* FentaNYL (PF) 100 MCG/2 ML VIAL ONE (16:58)
[2016-12-12] MEDS: *HR* FentaNYL (PF) 100 MCG/2 ML VIAL IVP PRN ×2 (17:15→17:17)
[2016-12-12] MEDS: *HR* Midazolam HCl 5 MG/5 ML VIAL IVP PRN ×2 (17:16→17:17)
--- NOTE | 2016-12-12 17:43 | Internal Med Progress Note ---
Date of Encounter: 12/12/16 Time of Encounter: 17:40 - Assessment and plan (1) Acute blood loss anemia Current Visit: Yes Status: Acute Assessment and plan: occult blood is positive h/o gastric ulcers and diverticulitis. EGD did not show any active bleeding has been on elliquis since last yr when she had a stroke and her plavix was changed to elliquis. she says she has not had any bleeds after being on elliquis until now. will continue elliquis for now and can f/u as OP with PCP with rpeeat CBC. currently denies any complains, hb today 8.8 (2) Acute kidney injury Current Visit: Yes Status: Acute Assessment and plan: resolved (3) Chest pain Current Visit: Yes Status: Acute Assessment and plan: resolved. Qualifiers: Chest pain type: unspecified Qualified Code(s): R07.9 - Chest pain, unspecified - Time Spent With Patient 25 - 35 minutes - Subjective Interval history: seen at the bedside today, denies any complains. no lal or hematemesis. EGD/today for anemia, haem occult positive. - Constitutional Vitals: Temp Pulse Resp BP Pulse Ox 98.1 F 91 16 167/59 95 12/12/16 15:16 12/12/16 17:35 12/12/16 17:35 12/12/16 17:35 12/12/16 17:35 General appearance: Present: A&O X 3, pleasant, no acute distress, answers questions appropriately Exam: Head Head exam: Present: atraumatic, normal inspection, normocephalic - Eye Eye exam: Present: EOMI, normal appearance, PERRL - ENT ENT exam: Present: mucous membranes moist - Respiratory Respiratory exam: Present: CTAB. Absent: decreased breath sounds, rhonchi, wheezes - Cardiovascular s1 and s2, no mr//g - GI/Abdominal GI/Abdominal exam IM: Present: soft. Absent: guarding, rebound, rigid, tenderness - Extremities Exam Extremities exam IM: Absent: calf tenderness - Neurological Exam Neurological exam: Present: alert, CN II-XII intact, oriented X3 Internal Medicine: Result - Labs CBC & Chem 7: 12/12/16 05:06 12/12/16 05:06 Labs: Short CBC 12/12/16 Range/Units 05:06 WBC 6.2 (4.3-11.1) K/mcL Hgb 8.8 L (11.5-15.4) g/dL Hct 26.9 L (35.3-44.9) % Plt Count 185 (140-400) K/mcL Neutrophils # 4.2 (1.6-8.9) K/mcL BMP 12/12/16 05:06 Sodium 140 Potassium 3.6 Chloride 111 H Carbon Dioxide 21 BUN 5 L Creatinine 0.63 Glucose 133 H Calcium 7.7 L - VTE Documentation of Mechanical Device: Venous foot pump, device Consult Discharge Plan - Plan Additional Instructions: Discharge Instructions: Total Hip Replacement Please call [facility] ([phone]), your Primary Care Physician, or report to the Emergency Room if you have any of the following symptoms: Nausea, vomiting, fever greater that 101.5, swelling, chest pain, shortness of breath, increased pain/redness/drainage/odor for your incision site, numbness/ tingling, or any other concerning symptoms. ACTIVITY:Weight-bearing as tolerated for 8 weeks with hip dislocation precautions that physical therapy taught you. You may progress as tolerated under the guidance of your physical therapist. You do not need to sleep with a pillow between your legs. You can also seep on the operative side or on your stomach. MEDICATIONS: Upon discharge resume your home medications. Take all the medications as prescribed. Take a stool softener if taking narcotic pain medications. Stool softeners are only effective if you drink enough fluids. Drink 6-8 glass of water or fluids a day, unless this is not allowed for another health problem. Despite using stool softeners, if you haven't had a bowel movement in 3 days, please switch to a gentle laxative. Gentle laxatives are sold over the counter. You should have a bowel movement within 24 hours, if not call the office. You will be discharged from the hospital with a prescription for pain medication. You are encouraged to decrease the use of narcotic pain medication as tolerated. Should you require a refill, please call the office. [facility] prescribes narcotic pain medication for only 4-6 weeks after surgery. If you require pain medication beyond this time periord, you may be referred to your Primary Care Physician or to the Pain Clinic for further evaluation. Plan ahead for refills on pain medication as many narcotics either need to be picked up at the office or mailed. It is best to call 48-72 hours in advance of needing a prescription refill so you don't run out of medication. To help control the post-operative pain, you may take NSAIDs (Aleve,Advil, Motrin, ibuprofen, naprosyn) or Tylenol as prescribed on the bottle in addition to the pain medication. ANTICOAGULATION (blood thinners): Continue your Aspirin, Lovenox or Coumadin as prescribed to help prevent a blood clot in the leg or in the lungs. As long as your incision remains dry and you tolerate the NSAIDs (Aleve, Advil, Motrin, ibuprofen, naprosyn), it is OK to use the NSAIDS while you are taking your anticoagulation medication. Should your incision start to drain, stop the NSAID and contact our office. Common symptoms of blood clot in the legs include: localized pain, swelling, calf tenderness, redness or discoloration of the skin. Blood clot in the lung symptoms include: shortness of breath, rapid pulse, sweating, and chest pain that worsens with deep breathing, coughing up blood, lightheadedness, feelings of anxiety. If you experience any of these symptoms notify your physician immediately, go to the emergency room, or if having trouble breathing, call 911. WOUND CARE: Leave the dressing on for 7 days. You may change the dressing if it is saturated greater than 50%. You can shower but not a tub bath or submerge your incision in water. Wash your hands with antibacterial soap, rinse and dry prior to any wound care. If you have lenny the visiting nurse or rehab facility can remove the stapes 10-14 days after surgery [address] place steri-strips across the wound. Leave the steri-strips in place until they fall off on their won. You may let water from the shower run on top of the steri-stirips. If you do not have a visiting nurse or rehab facility, you will need to return to the office at 10-14 days for the lenny to be removed. FOLLOW-UP: Please follow up with your surgeon in the orthopedic clinic in 6 weeks from the day of surgery. If you have lenny that need to be removed, you will need to come back to the office in 10-14 days from the day of surgery. Referrals: Jairo Richardson MD [Partnered Physician] - 01/03/17 8:35 am Esme Menon, PAC [Physician Director Prison] - 12/15/16 10:45 am Miguel Martinez DO [Primary Care Provider] - Taryn Braga MD [Partnered Physician] -
[2016-12-13] MEDS: 0.9 % Sodium Chloride 1,000 ML IVC SCH (03:43)
[2016-12-13] MEDS: *HR* OxyCODONE Immed Rel 5 MG TABLET PO PRN ×3 (05:43→15:30)
--- NOTE | 2016-12-13 06:31 | Orthopedics Progress Note ---
Date of Encounter: 12/13/16 Time of Encounter: 06:30 - Assessment and Plan (1) Arthritis of right hip Current Visit: Yes Status: Acute (2) CAD (coronary artery disease) Current Visit: Yes Status: Chronic Qualifiers: Coronary Disease-Associated Artery/Lesion type: unspecified vessel or lesion type [place] vs. transplanted heart: unspecified whether [place] or transplanted heart Associated angina: angina presence unspecified Qualified Code(s): I25.10 - Atherosclerotic heart disease of [place] coronary artery without angina pectoris (3) History of CVA (cerebrovascular accident) Current Visit: Yes Status: Chronic (4) History of non-ST elevation myocardial infarction (NSTEMI) Current Visit: Yes Status: Chronic (5) Azotemia Current Visit: No Status: Chronic (6) Diverticulitis Current Visit: No Status: Chronic Qualifiers: Diverticulitis site: large intestine Diverticulitis bleeding: without bleeding Diverticulitis complication: without perforation or abscess Qualified Code(s): K57.32 - Diverticulitis of large intestine without perforation or abscess without bleeding (7) Hyperlipidemia Current Visit: No Status: Chronic Qualifiers: Hyperlipidemia type: unspecified Qualified Code(s): E78.5 - Hyperlipidemia , unspecified (8) Hypertension Current Visit: No Status: Chronic Qualifiers: Hypertension type: essential hypertension Qualified Code(s): I10 - Essential (primary) hypertension (9) Hypothyroidism Current Visit: No Status: Chronic Qualifiers: Hypothyroidism type: unspecified Qualified Code(s): E03.9 - Hypothyroidism , unspecified (10) Acute blood loss anemia Current Visit: Yes Status: Acute Subjective Principal diagnosis: Right hip arthritis Interval history: Patient was seen this morning doing well without complaints. Afebrile vital signs stable. Operative extremity: Neurovascularly intact Dressing clean dry and intact Calves nontender Assessment and plan: Continue with postoperative care Discharged today Objective Vital signs: Vital Signs Temp Pulse Resp BP Pulse Ox 12/13/16 04:00 98.0 F 81 17 125/71 95 12/13/16 00:00 98.1 F 83 17 123/70 94 L 12/12/16 20:41 98.2 F 81 16 120/72 94 L 12/12/16 18:08 97.6 F 83 16 143/75 96 12/12/16 17:40 99 16 168/87 96 12/12/16 17:35 91 16 167/59 95 12/12/16 17:30 96 16 186/63 91 L 12/12/16 17:25 90 18 186/63 90 L 12/12/16 17:17 91 18 179/91 95 12/12/16 17:16 95 20 171/85 12/12/16 15:16 98.1 F 95 20 171/85 95 12/12/16 11:08 98.3 F 72 18 135/75 96 12/12/16 09:10 98.9 F 83 16 141/79 97 12/12/16 06:38 98.7 F 80 18 134/67 95 Intake and Output 12/12/16 12/12/16 12/13/16 15:59 23:59 07:59 Intake Total 1000 / 1000 Output Total 375 / 375 500 / 500 200 / 200 Balance 625 / 625 -500 / -500 -200 / -200 Intake: IV Fluids 1000 / 1000 0.9 % Sodium Chloride 1, 1000 / 1000 000 ML @ 125 mls/hr IVC . Q8H [facility] Rx#:[id number] Output: Urine 375 / 375 500 / 500 200 / 200 Other: # Voids 1 Blood Glucose* 160 178 - Labs CBC & BMP: 12/12/16 05:06 12/12/16 05:06 Labs: Abnormal lab results RBC 2.74 M/mcL (3.82-4.97) L 12/12/16 05:06 Hgb 8.8 g/dL (11.5-15.4) L 12/12/16 05:06 Hct 26.9 % (35.3-44.9) L 12/12/16 05:06 RDW 14.6 % (11.5-14.5) H 12/12/16 05:06 Nucleated RBCs/100 WBC 0.5 /100 WBC (0) H 12/12/16 05:06 Chloride 111 mEq/L (98-109) H 12/12/16 05:06 BUN 5 mg/dL (7-20) L 12/12/16 05:06 Glucose 133 mg/dL (70-99) H 12/12/16 05:06 POC Glucose 178 (58-89) H 12/12/16 20:03 Calcium 7.7 mg/dL (8.6-10.8) L 12/12/16 05:06 Phosphorus 6.4 mg/dL (2.3-4.7) H 12/07/16 03:14 Iron 46 mcg/dL (50-170) L 12/07/16 08:39 Ur Squamous Epith Cells Moderate per lpf (None-Few) H 12/07/16 09:43 Stool Occult Blood Positive (Negative) A 12/08/16 20:10 - VTE Documentation of Mechanical Device: Venous foot pump, device Consult Discharge Plan - Plan Additional Instructions: Discharge Instructions: Total Hip Replacement Please call [facility] ([phone]), your Primary Care Physician, or report to the Emergency Room if you have any of the following symptoms: Nausea, vomiting, fever greater that 101.5, swelling, chest pain, shortness of breath, increased pain/redness/drainage/odor for your incision site, numbness/ tingling, or any other concerning symptoms. ACTIVITY:Weight-bearing as tolerated for 8 weeks with hip dislocation precautions that physical therapy taught you. You may progress as tolerated under the guidance of your physical therapist. You do not need to sleep with a pillow between your legs. You can also seep on the operative side or on your stomach. MEDICATIONS: Upon discharge resume your home medications. Take all the medications as prescribed. Take a stool softener if taking narcotic pain medications. Stool softeners are only effective if you drink enough fluids. Drink 6-8 glass of water or fluids a day, unless this is not allowed for another health problem. Despite using stool softeners, if you haven't had a bowel movement in 3 days, please switch to a gentle laxative. Gentle laxatives are sold over the counter. You should have a bowel movement within 24 hours, if not call the office. You will be discharged from the hospital with a prescription for pain medication. You are encouraged to decrease the use of narcotic pain medication as tolerated. Should you require a refill, please call the office. [facility] prescribes narcotic pain medication for only 4-6 weeks after surgery. If you require pain medication beyond this time periord, you may be referred to your Primary Care Physician or to the Pain Clinic for further evaluation. Plan ahead for refills on pain medication as many narcotics either need to be picked up at the office or mailed. It is best to call 48-72 hours in advance of needing a prescription refill so you don't run out of medication. To help control the post-operative pain, you may take NSAIDs (Aleve,Advil, Motrin, ibuprofen, naprosyn) or Tylenol as prescribed on the bottle in addition to the pain medication. ANTICOAGULATION (blood thinners): Continue your Aspirin, Lovenox or Coumadin as prescribed to help prevent a blood clot in the leg or in the lungs. As long as your incision remains dry and you tolerate the NSAIDs (Aleve, Advil, Motrin, ibuprofen, naprosyn), it is OK to use the NSAIDS while you are taking your anticoagulation medication. Should your incision start to drain, stop the NSAID and contact our office. Common symptoms of blood clot in the legs include: localized pain, swelling, calf tenderness, redness or discoloration of the skin. Blood clot in the lung symptoms include: shortness of breath, rapid pulse, sweating, and chest pain that worsens with deep breathing, coughing up blood, lightheadedness, feelings of anxiety. If you experience any of these symptoms notify your physician immediately, go to the emergency room, or if having trouble breathing, call 911. WOUND CARE: Leave the dressing on for 7 days. You may change the dressing if it is saturated greater than 50%. You can shower but not a tub bath or submerge your incision in water. Wash your hands with antibacterial soap, rinse and dry prior to any wound care. If you have lenny the visiting nurse or rehab facility can remove the stapes 10-14 days after surgery [address] steri-strips across the wound. Leave the steri-strips in place until they fall off on their won. You may let water from the shower run on top of the steri-stirips. If you do not have a visiting nurse or rehab facility, you will need to return to the office at 10-14 days for the lenny to be removed. FOLLOW-UP: Please follow up with your surgeon in the orthopedic clinic in 6 weeks from the day of surgery. If you have lenny that need to be removed, you will need to come back to the office in 10-14 days from the day of surgery. Referrals: Jairo Richardson MD [Partnered Physician] - 01/03/17 8:35 am Mulvany,Esme L, PAC [Physician Biochemistry Professor] - 12/15/16 10:45 am Miguel Martinez, DO [Primary Care Provider] - Taryn Braga MD [Partnered Physician] -
[2016-12-13] MEDS: Insulin LISPRO 300 UNITS/3 ML VIAL SQ SCH ×2 (08:08→12:28)
[2016-12-13] MEDS: Multivit/Ca/Min/Fe/FA 1 TAB TABLET PO SCH (08:10)
[2016-12-13] MEDS: Ascorbic Acid 500 MG TABLET PO SCH (08:10)
[2016-12-13] MEDS: Metoprolol XL (24 HR) Succ 50 MG TAB.ER.24H PO SCH (08:10)
[2016-12-13] MEDS: Magnesium Oxide 400 MG TABLET PO SCH (08:10)
[2016-12-13] MEDS: APIXABAN 2.5 MG TABLET PO SCH (08:11)
[2016-12-13] MEDS: Sennosides 8.6 MG TABLET PO SCH (08:11)
[2016-12-13] MEDS: (Calcium Carbonate/Vitamin D3 [Calcium 600 + D Tablet PO SCH (08:12)
[2016-12-13 14:48] VITALS: BP 121/72
== END 2016-12-13 15:38 | DRG 469 ==
LOC: SAMDAY 14:08 → 3NENU 19:54
PROVIDERS: ADMIT Orthopaedic Surgery; ATTEND Orthopaedic Surgery
PROC: ENDOEBX (2016-12-12 13:00)